=== PATIENT | female | born 2005 | race Caucasian/White ===

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

== ENCOUNTER 2024-01-01 07:03 | Outpatient (OUT) | payer MEDICAID, SELFPAY ==
--- OUTSIDE RECORDS SUMMARY | 2024-01-01 07:06 | XMS_ITS | CCD ---
Author Organization [facility] Inform ion Partnership [facility] Care Team Providers Care Microfilm Operator Name Role Phone ANTONIO MARCELO (LICENSE EXAMINER) Unavailable Unava ilable ANTONIO MARCELO (LICENSE EXAMINER) Unavailable Unava ilable DO Daryl Shannon Primary Care Provider VALERY Mandujano Emergency Provider [phone] Daryl Shannon Primary Care Unavailable Steve Mandujano Attending Unavailable Steve Mandujano Admitting Unavailable DOMO SANDHU Attending Unavailable MARIAM HUANG Attending Unavailable DOMO SANDHU Attending Unavailable DOMO SANDHU Attending Unavailable MARIAM HUANG Attending Unavailable MARIAM HUANG Attending Unavailable DOMO SANDHU Attending Unavailable MARIAM HUANG Attending Unavailable DOMO SANDHU Attending Unavailable DOMO SANDHU Attending Unavailable Medications [...] 20, 2020 12:00am August 15, 2022 6:11pm [id number] 0.3 ml EPINEPHrine 1 mg/ml auto-injector (1 [...] by Deanne Hazel on 08/18/2022 1539 Normal [facility] Specialist Alanine aminotransferase [En zymatic activity/volume] in Serum or PlasmaOrdered By: Steve Mandujano on 08-15-2022 ALT [Catalytic activity/Vol] 16 U/L 7-52 [facility] Albumin [Mass/volume] in Ser um or Plasma by Bromocresol green (BCG) dye binding methoOrdered By: Setve Mandujano on 08-15-2022 Albumin BCG dye [Mass/Vol] 4.5 g/dL 3.5-5.7 [facility] Alkaline phosphatase [Enzyma tic activity/volume] in Serum or PlasmaOrdered By: Steve aMndujano on 08-15-2022 ALP [Catalytic activity/Vol] 82 U/L 34-104 [facility] Aspartate aminotransferase [ Enzymatic activity/volume] in Serum or PlasmaOrdered By: Steve Mandujano on 08-15-2022 AST [Catalytic activity/Vol] 19 U/L 13-39 [facility] Basophils Auto (Bld) [#/Vol] Ordered By: Steve Mandujano on 08-15-2022 Basophils (Bld) [#/Vol] 0.0 10*3/uL 0.0-0.1 [facility] Basophils/100 WBC Auto (Bld) Ordered By: Steve Mandujano on 08-15-2022 Basophils/100 WBC (Bld) 0.4 % . [facility] Bilirubin.total [Mass/volume ] in Serum or PlasmaOrdered By: Steve Mandujano on 08-15-2022 Bilirubin [Mass/Vol] 0.7 mg/dL 0.3-1.0 [facility] Calcium [Mass/volume] in Ser um or PlasmaOrdered By: Steve Mandujano on 08-15-2022 Calcium [Mass/Vol] 8.8 mg/dL 8.6-10.3 [facility] Carbon dioxide, total [Moles /volume] in Serum or PlasmaOrdered By: Steve Mandujano on 08-15-2022 CO2 [Moles/Vol] 22.0 mmol/L 21.0-31.0 [facility] Chloride [Moles/volume] in S jennie or PlasmaOrdered By: Steve Mandujano on 08-15-2022 Chloride [Moles/Vol] 101 mmol/L 98-107 [facility] Complete Blood Count Auto Di ffon 08-15-2022 Basophils (Bld) [#/Vol] 0.0 10*3/uL Normal 0.0-0.1 [facility] Comment on above: Result Comment: PERF ORMED BY: [place] [address] PATHOLOGIST CASHIER SELF SERVICE GASOLINE PHILIP GONZALEZ M.D. Performed By: #### L IPASE, CMP, CBC #### [facility] [address] [place] [address] Basophils/100 WBC (Bld) 0.4 % Normal . [facility] Comment on above: Performed By: #### L IPASE, CMP, CBC #### [facility] [address] [place] [address] [place] Eosinophils (Bld) [#/Vol] 0.0 10*3/uL Normal 0.0-0.7 [facility] Comment on above: Performed By: #### L IPASE, CMP, CBC #### [facility] [address] Eosinophils/100 WBC (Bld) 0.6 % Normal . [facility] Comment on above: Performed By: #### L IPASE, CMP, CBC #### [address] Erythrocyte distribution width (RBC) [Ratio] 13.2 % Normal 11.9-15.3 [facility] Comment on above: Performed By: #### L IPASE, CMP, CBC #### [address] Hematocrit (Bld) [Volume fraction] 37.2 % Normal 36.0-46.0 [facility] Comment on above: Performed By: #### L IPASE, CMP, CBC #### [address] Hemoglobin (Bld) [Mass/Vol] 12.5 g/dL Normal 12.0-16.0 [facility] Comment on above: Performed By: #### L IPASE, CMP, CBC #### [address] Lymphocytes (Bld) [#/Vol] 0.8 10*3/uL Low 1.20-4.8 [facility] Comment on above: Performed By: #### L IPASE, CMP, CBC #### [address] Lymphocytes/100 WBC (Bld) 9.9 % Normal . [facility] Comment on above: Performed By: #### L IPASE, CMP, CBC #### [address] MCH (RBC) [Entitic mass] 28.6 pg Normal 25.0-35.0 [facility] Comment on above: Performed By: #### L IPASE, CMP, CBC #### [address] MCV (RBC) [Entitic vol] 85.4 fL Normal 78-102 [facility] Comment on above: Performed By: #### L IPASE, CMP, CBC #### [facility] [address] Mean Corpuscular HGB Conc 33.5 g/dL Normal 31.0-37.0 [facility] Comment on above: Performed By: #### L IPASE, CMP, CBC #### [facility] [address] [place] [address] [place] Monocytes (Bld) [#/Vol] 0.8 10*3/uL Normal 0.1-1.00 [facility] Comment on above: Performed By: #### L IPASE, CMP, CBC #### [facility] [address] [place] [address] [place] Monocytes/100 WBC (Bld) 17.61 % Normal 0.00-20.00 [facility] Comment on above: Performed By: #### L IPASE, CMP, CBC #### [facility] [address] [place] [address] [place] Monocytes/100 WBC (Bld) 9.9 % Normal . [facility] Comment on above: Performed By: #### L IPASE, CMP, CBC #### [facility] [address] [place] [address] [place] Neutrophils (Bld) [#/Vol] 6.6 10*3/uL Normal 1.2-7.7 [facility] Comment on above: Performed By: #### L IPASE, CMP, CBC #### [facility] [address] [place] [id number] [place] Neutrophils/100 WBC (Bld) 79.2 % Normal . [facility] Comment on above: Performed By: #### L IPASE, CMP, CBC #### [facility] [address] [place] [id number] [place] NRBC% 0.1 /100{WBC} Normal 0-0.5 [facility] Comment on above: Performed By: #### L IPASE, CMP, CBC #### [facility] [address] [place] [address] [place] Platelet mean volume (Bld) [Entitic vol] 7.9 fL Normal 6.3-10.7 [facility] Comment on above: Performed By: #### L IPASE, CMP, CBC #### [address] Platelets (Bld) [#/Vol] 210 10*3/uL Normal 150-450 [facility] Comment on above: Performed By: #### L IPASE, CMP, CBC #### [address] RBC (Bld) [#/Vol] 4.36 10*6/uL Normal 4.10-5.10 [facility] Comment on above: Performed By: #### L IPASE, CMP, CBC #### [address] WBC (Bld) [#/Vol] 8.4 10*3/uL Normal 4.5-13.5 [facility] Comment on above: Performed By: #### L IPASE, CMP, CBC #### [address] Comprehensive Metabolic Pane gisell 08-15-2022 Albumin [Mass/Vol] 4.5 g/dL Normal 3.5-5.7 [facility] Comment on above: Performed By: #### L IPASE, CMP, CBC #### [address] Albumin/Globulin [Mass ratio] 1.6 {ratio} Normal [facility] Comment on above: Performed By: #### L IPASE, CMP, CBC #### [address] ALP [Catalytic activity/Vol] 82 U/L Normal 34-104 [facility] Comment on above: Performed By: #### L IPASE, CMP, CBC #### [address] ALT [Catalytic activity/Vol] 16 U/L Normal 7-52 [facility] Comment on above: Performed By: #### L IPASE, CMP, CBC #### [address] Anion gap [Moles/Vol] 13.8 mmol/L Normal 6.0-15.0 [facility] Comment on above: Performed By: #### L IPASE, CMP, CBC #### [address] AST [Catalytic activity/Vol] 19 U/L Normal 13-39 [facility] Comment on above: Performed By: #### L IPASE, CMP, CBC #### [facility] [address] Bilirubin [Mass/Vol] 0.7 mg/dL Normal 0.3-1.0 [facility] Comment on above: Performed By: #### L IPASE, CMP, CBC #### [address] Calcium [Mass/Vol] 8.8 mg/dL Normal 8.6-10.3 [facility] Comment on above: Performed By: #### L IPASE, CMP, CBC #### [address] Chloride [Moles/Vol] 101 mmol/L Normal 98-107 [facility] Comment on above: Performed By: #### L IPASE, CMP, CBC #### [address] CO2 [Moles/Vol] 22.0 mmol/L Normal 21.0-31.0 [facility] Comment on above: Performed By: #### L IPASE, CMP, CBC #### [address] Creatinine [Mass/Vol] 0.81 mg/dL Normal 0.60-1.20 [facility] Comment on above: Performed By: #### L IPASE, CMP, CBC #### [address] Creatinine Clr Calc Pharmacy 120.43 Normal [facility] Comment on above: Performed By: #### L IPASE, CMP, CBC #### [place] [address] [place] GFR/1.73 sq M.predicted MDRD (S/P/Bld) [Vol rate/Area] mL/min/{1.73_m2} Normal [facility] Comment on above: Performed By: #### L IPARAHEEL WINTER, CBC #### [facility] [address] Globulin (S) [Mass/Vol] 2.8 g/dL Normal [facility] Comment on above: Performed By: #### L IPASE CMP, CBC #### [address] Glucose [Mass/Vol] 93 mg/dL Normal 70-100 [facility] Comment on above: Result Comment: [facility] Glucose Reference Range is dependent on time and content of last meal. Glucose of more than 200 mg/dL in a nonstressed, ambulatory subject supports the diagnosis of Diabetes Mellitus. ADA recommended reference range Performed By: #### L IPARAHEEL WINTER, CBC #### [address] Potassium [Moles/Vol] 3.8 mmol/L Normal 3.5-5.1 [facility] Comment on above: Performed By: #### L IPARAHEEL WINTER, CBC #### [address] Protein [Mass/Vol] 7.3 g/dL Normal 6.4-8.9 [facility] Comment on above: Performed By: #### L IPASE CMP, CBC #### [address] Sodium [Moles/Vol] 133 mmol/L Low 136-145 [facility] Comment on above: Performed By: #### L IPASE CMP, CBC #### [place] [address] [place] Urea nitrogen [Mass/Vol] 16 mg/dL Normal 7-25 [facility] Comment on above: Performed By: #### L IPASE, CMP, CBC #### [place] [address] [place] Creatinine [Mass/volume] in Serum or PlasmaOrdered By: Steve Mandujano on 08-15-2022 Creatinine [Mass/Vol] 0.81 mg/dL 0.60-1.20 [facility] Eosinophils Auto (Bld) [#/Vo l]Ordered By: Steve Mandujano on 08-15-2022 Eosinophils (Bld) [#/Vol] 0.0 10*3/uL 0.0-0.7 [facility] Eosinophils/100 WBC Auto (Bl d)Ordered By: Steve Mandujano on 08-15-2022 Eosinophils/100 WBC (Bld) 0.6 % . [facility] Erythrocyte distribution wid th Auto (RBC) [Ratio]Ordered By: Steve Mandujano on 08-15-2022 Erythrocyte distribution width (RBC) [Ratio] 13.2 % 11.9-15.3 [facility] Globulin Calc (S) [Mass/Vol] Ordered By: Steve Mandujano on 08-15-2022 Globulin (S) [Mass/Vol] 2.8 g/dL [facility] Glucose [Mass/volume] in Ser um or PlasmaOrdered By: Steve Mandujano on 08-15-2022 Glucose [Mass/Vol] 93 mg/dL 70-100 [facility] Comment on above: ADA recommended refe rence rangeRandom Glucose Reference Range is dependent on time and content of last meal. Glucose of more than 200 mg/dL in a nonstressed, ambulatory subject supports the diagnosis of Diabetes Mellitus. Hematocrit Auto (Bld) [Volum e fraction]Ordered By: Steve Mandujano on 08-15-2022 Hematocrit (Bld) [Volume fraction] 37.2 % 36.0-46.0 [facility] Hemoglobin [Mass/volume] in BloodOrdered By: Steve Mandujano on 08-15-2022 Hemoglobin (Bld) [Mass/Vol] 12.5 g/dL 12.0-16.0 [facility] Leukocytes [#/volume] correc lilly for nucleated erythrocytes in Blood by Automated counOrdered By: Steve Mandujano on 08-15-2022 WBC corrected for nucl RBC Auto (Bld) [#/Vol] 8.4 10*3/uL 4.5-13.5 [facility] Lipaseon 08-15-2022 Lipase [Catalytic activity/Vol] 11.0 U/L Normal 11.0-82.0 [facility] Comment on above: Result Comment: PERF ORMED BY: [place] [address] PATHOLOGIST CASHIER SELF SERVICE GASOLINE PHILIP GONZALEZ M.D. Performed By: #### L IPASE, CMP, CBC #### [address] Lipase [Enzymatic activity/v olume] in Serum or PlasmaOrdered By: Steve Mandujano on 08-15-2022 Lipase [Catalytic activity/Vol] 11.0 U/L 11.0-82.0 [facility] Lymphocytes Auto (Bld) [#/Vo l]Ordered By: Steve Mandujano on 08-15-2022 Lymphocytes (Bld) [#/Vol] 0.8 10*3/uL 1.20-4.8 [facility] Lymphocytes/100 WBC Auto (Bl d)Ordered By: Steve Mandujano on 08-15-2022 Lymphocytes/100 WBC (Bld) 9.9 % . [facility] MCH Auto (RBC) [Entitic mass ]Ordered By: Steve Mandujano on 08-15-2022 MCH (RBC) [Entitic mass] 28.6 pg 25.0-35.0 [facility] MCHC Auto (RBC) [Mass/Vol]Or dered By: Steve Mandujano on 08-15-2022 MCHC (RBC) [Mass/Vol] 33.5 g/dL 31.0-37.0 [facility] MCV Auto (RBC) [Entitic vol] Ordered By: Steve Mandujano on 08-15-2022 MCV (RBC) [Entitic vol] 85.4 fL 78-102 [facility] Monocyte distribution width [Entitic volume] in Blood by AutomatedOrdered By: Steve Mandujano on 08-15-2022 Monocyte distribution width Auto (Bld) [Entitic vol] 17.61 % 0.00-20.00 [facility] Monocytes Auto (Bld) [#/Vol] Ordered By: Steve Mandujano on 08-15-2022 Monocytes (Bld) [#/Vol] 0.8 10*3/uL 0.1-1.00 [facility] Monocytes/100 WBC Auto (Bld) Ordered By: Steve Mandujano on 08-15-2022 Monocytes/100 WBC (Bld) 9.9 % . [facility] Neutrophils Auto (Bld) [#/Vo l]Ordered By: Steve Mandujano on 08-15-2022 Neutrophils (Bld) [#/Vol] 6.6 10*3/uL 1.2-7.7 [facility] Neutrophils/100 WBC Auto (Bl d)Ordered By: Steve Mandujano on 08-15-2022 Neutrophils/100 WBC (Bld) 79.2 % . [facility] No Panel InformationOrdered By: Steve Mandujano on 08-15-2022 Estimated GFR (CKD-EPI) > 60.0 mL/Min [facility] Creatinine Clearance (Chem 120.43 [facility] Nucleated erythrocytes [Pres ence] in Blood by Automated countOrdered By: Steve Mandujano on 08-15-2022 Nucleated RBC Auto Ql (Bld) 0.1 /100{WBC} 0-0.5 [facility] Platelet mean volume Auto (B ld) [Entitic vol]Ordered By: Steve Mandujano on 08-15-2022 Platelet mean volume (Bld) [Entitic vol] 7.9 fL 6.3-10.7 [facility] Platelets Auto (Bld) [#/Vol] Ordered By: Steve Mandujano on 08-15-2022 Platelets (Bld) [#/Vol] 210 10*3/uL 150-450 [facility] Potassium [Moles/volume] in Serum or PlasmaOrdered By: Steve Mandujano on 08-15-2022 Potassium [Moles/Vol] 3.8 mmol/L 3.5-5.1 [facility] Protein [Mass/volume] in Ser um or PlasmaOrdered By: Steve Mandujano on 08-15-2022 Protein [Mass/Vol] 7.3 g/dL 6.4-8.9 [facility] RBC Auto (Bld) [#/Vol]Ordere d By: Steve Mandujano on 08-15-2022 RBC (Bld) [#/Vol] 4.36 10*6/uL 4.10-5.10 [facility] Serum or plasma albumin/glob ulin mass ratioOrdered By: Steve Mandujano on 08-15-2022 Albumin/Globulin [Mass ratio] 1.6 {ratio} [facility] Serum or plasma anion gap de terminationOrdered By: Steve Mandujano on 08-15-2022 Anion gap [Moles/Vol] 13.8 mmol/L 6.0-15.0 [facility] Sodium [Moles/volume] in Ser um or PlasmaOrdered By: Steve Mandujano on 08-15-2022 Sodium [Moles/Vol] 133 mmol/L 136-145 [facility] Urea nitrogen [Mass/volume] in Serum or PlasmaOrdered By: Steve Mandujano on 08-15-2022 Urea nitrogen [Mass/Vol] 16 mg/dL 7-25 [facility] WBC Auto (Bld) [#/Vol]Ordere d By: Steve Mandujano on 08-15-2022 WBC (Bld) [#/Vol] 8.4 10*3/uL 4.5-13.5 [facility] CNCOon 01-06-2021 CNCO Letter Text Normal [facility] CNOVon 01-04-2021 CNOV Office Visit (PERHAV ) CAROL KRAUSE ([id number]) 3 F Date Time Provider Department 01/04/21 9:00 AM SHARRON ARREOLA During your visit today, we recorded the following information about you: Temperature Pulse Respiration Blood pressure 98.3 degrees 92/minute 18/minute 127/64 Weight Height 79.8 kg 1.6 m Sharron Arreola MD 01/07/2021 3:20 PM Signed INITIAL OUTPATIENT VISIT PEDIATRIC RHEUMATOLOGY SERVICE DATE: 01/04/2021 REFERRING PHYSICIAN: Daryl Shannon, DO [address] [place] [address] PRIMARY CARE PHYSICIAN: Daryl Shannon DO ACCOMPANIED [...] - S (more content not included)... Normal [facility] PROGRESSon 10-17-2017 Protein HNO ID: [id number]: Reba Caballero ([facility]) GolayService: RadiologyAuthor Type: Cardiac SonographerType: Progress NotesFiled: 10/17/2017 10:42 AMNote Text: Radiology Service Progress NotePATIENT NAME: Carol KrauseMRN: [id number] OF SERVICE: October 17, 2017TIME: 10:40 AMPATIENT IDENTITY VERIFICATION COMPLETED USING TWO (2) METHODS: Patientconfirmed name verbally and ID band matches..PATIENT GENDER DATA: Female. status: : NoBreastfeeding status: NO. and N/APATIENT RELEVANT IMPLANT DATA REVIEWED: Not ApplicableRADIOLOGY DEPARTMENT: Ultrasound renalPERIPHERAL IV DATA: Not applicableSIGNED BY: Jacki Bailey 2017 10:40 AM [facility] Protein HNO ID: [id number]: Sandra (Rt) WallService: RadiologyAuthor Type: TechnicianType: Progress NotesFiled: 10/17/2017 10:03 AMNote Text: Radiology Service Progress NotePATIENT NAME: Carol KrauseMRN: [id number] OF SERVICE: October 17, 2017TIME: 10:03 AMPATIENT IDENTITY VERIFICATION COMPLETED USING TWO (2) METHODS: Patientconfirmed name verbally and Date of .PATIENT GENDER DATA: Female. status: : NoBreastfeeding status: NO.PATIENT RELEVANT IMPLANT DATA REVIEWED: YesRADIOLOGY DEPARTMENT: General X-ray: Exam(s) Completed: Abdomen X-RayAbdomenPERIPHERAL IV DATA: Not applicableSIGNED BY: Nikki Haley 2017 10:03 AM [facility] US KIDNEY/BLADDERon 10-18-19 US KIDNEY/BLADDER * * *Final Report* * *DATE OF EXAM: Oct 17 2017 10:35AM [facility] 1055 - US KIDNEY/BLADDER / [...] GUERIN MD on Oct 17 2017 11:06AM [id number] [facility] XR ABDOMEN 1V SUPINEon 10-17 XR [...] Large amount of fecal material in the colon.Store Loss Prevention Manager : JOSE Transcribe Date/Time: Oct 17 2017 10:32ADictated by : Go GUZMAN examination was interpreted and the report reviewed and electronically signed by: SASHA MANDUJANO MD on Oct 17 2017 10:33AM [id number] [facility] Vital Signs Date Time Vital Sign Value Performing Clinician Faci lituzair 08-15-2022 19:52-0400 Diastolic blood pressure 60 mm[Hg] DO Daryl Shannon Work Phone: [facility] 08-15-2022 19:52-0400 Heart rate 78 /min DO Daryl Shannon Work Phone: [phone] [place] [address] 08-15-2022 19:52-0400 Respiratory rate 18 /min DO Daryl Petznick Work Phone: [phone] [place] [address] 08-15-2022 19:52-0400 SaO2% (BldA) [Mass fraction] 98 % DO Daryl Petznick Work Phone: [phone])944-967469 [place] [address] 08-15-2022 19:52-0400 Systolic blood pressure 119 mm[Hg] DO Daryl Petznick Work Phone: 4([phone])502-509969 [place] [address] 08-15-2022 18:47-0400 Body temperature 97.6 [degF] DO Daryl Petznick Work Phone: [phone] [place] [address] 08-15-2022 17:41-0400 Body height 160.02 cm DO Daryl Petznick Work Phone: [phone] [place] [address] 08-15-2022 17:41-0400 Body weight 90.71 kg DO Daryl Petznick Work Phone: [phone] [place] [address] Encounters Encounter Date Encounter Type Care Provider Facility Start: 12-27-2023 End: 12-27-2023 ambulatory DOMO PHOEBE Not Available Start: 12-20-2023 End: 12-20-2023 ambulatory DOMO PHOEBE [...] Available Start: 06-09-2023 End: 06-09-2023 ambulatory DOMO SANDHU Not Available Start: 08-15-2022 End: 08-15-2022 Emergency department patient visit Daryl Shannon Facility:[facility] Start: 08-15-2022 End: 08-15-2022 Emergency department patient visit DO Daryl Shannon Work Phone: [facility] Work Phone: Start: 10-17-2017 Ambulatory ANTONIO Caballero (CN P) [facility] Plan of Treatment Date Care Activity Detail Author Patient Education Abdominal Pain, Adult E D [facility] Work Phone: Patient referral [facility] Work Phone: Payers Date Payer Category Payer Self-pay [id number] 2022 Unknown [id number] 2022 Medicaid [id number] 2004 Unknown [id number] 2.16.84 [id number] 2004 Unknown [id number] 2.16.84 [id number] 2004 Unknown [id number] 2.16.84 0.1.889387.3.579.2.1258 2004 Unknown [id number] 2.16.84 0.1.585825.3.579.2.1258 2004 Unknown [id number] 2.16.84 0.1.037808.3.579.2.1258 2004 Unknown [id number] 2.16.84 0.1.930630.3.579.2.9 2004 Unknown [id number] 2.16.84 0.1.098079.3.579.2.1259 2004 Unknown [id number] 2.16.84 0.1.641065.3.579.2.1259 2004 Unknown [id number] 2.16.84 0.1.979509.3.579.2.1259 2004 Unknown [id number] 2.16.84 0.1.700158.3.579.2.1259 2004 Unknown [id number] 2.16.84 0.1.257754.3.579.2.1259 Medicaid [employer] [id number] Unknown [id number] Unknown [id number] 2.16.8 [id number] Social History Date Type Detail Facility Start: [facility] Start: 2005 Sex Assigned At Female [facility] Progress note 01-04-2021 Note Date & Type Note Facility 01-04-2021 Note HNO ID: [id number] Author: Sharron Arreola MD Service: ? Author Type: Physician Type: Progress Notes Filed: 01/07/2021 3:20 PM Note Text: INITIAL OUTPATIENT VISIT PEDIATRIC RHEUMATOLOGY SERVICE DATE: 01/04/2021 REFERRING PHYSICIAN: Daryl Shannon DO [address] [facility] [address] [place] [id number] PRIMARY CARE PHYSICIAN: Daryl Shannon DO ACCOMPANIED [...] CURRENT MEDICATIONS: EP (more content not included)... [facility] Evaluation note Note Date & Type Note Facility Evaluation note No assessment information availa [facility] Work Phone: Summary Purpose [...] section and content) DATE CREATED AUTHOR 10/17/2017 [facility] DATE CREATED AUTHOR AUTHOR'S ORGANIZ ATION 05/08/2021 [facility] DATE CREATED AUTHOR AUTHOR'S ORGANIZ ATION 08/16/2022 [facility] DATE CREATED AUTHOR AUTHOR'S ORGANIZ ATION 08/19/2022 [facility] DATE CREATED AUTHOR AUTHOR'S ORGANIZ ATION 12/29/2023 [facility] EPIC Care Teams (unrecognized sec tion and content) Team Status: Active Member Role Status Dates Daryl Shannon , Primary Care Provider Active Team Status: Inactive [...] BE BASED ON THE PRIMARY CLINICAL RECORDS. [employer] provides no warranty or guarantee of the accuracy or completeness of information in this document.
[2024-01-01 10:21] VITALS: BP 124/58; PULSE 100
== END 2024-01-01 11:07 | disposition home or self-care (01) ==
LOC: FBCO 07:03 → FBC 10:10
PROVIDERS: PCP Family Medicine; Visit Provider Obstetrics & Gynecology
DX: O24.419 Gestational diabetes mellitus in pregnancy, unspecified control (principal); Z3A.37 37 weeks gestation of pregnancy
CPT/HCPCS: 59025

== ENCOUNTER 2024-01-04 06:56 | Outpatient (OUT) | payer MEDICAID, SELFPAY ==
--- OUTSIDE RECORDS SUMMARY | 2024-01-04 06:59 | XMS_ITS | CCD ---
Author Organization [facility] Inform ion Partnership [facility] Care Team Providers Care Traffic Sergeant Name Role Phone ANTONIO AMRCELO (MANDARIN CHINESE TEACHER) Unavailable Unava ilable ANTONIO MARCELO (MANDARIN CHINESE TEACHER) Unavailable Unava ilable DO Daryl Shannon Primary [...] 20, 2020 12:00am August 15, 2022 6:11pm [id number] 0.3 ml EPINEPHrine 1 mg/ml auto-injector (1 [...] by Deanne Hazel on 08/18/2022 1539 Normal [facility] Specialist Alanine aminotransferase [En zymatic activity/volume] in Serum or PlasmaOrdered By: Steve Mandujano on 08-15-2022 ALT [Catalytic activity/Vol] 16 U/L 7-52 [facility] Albumin [Mass/volume] in Ser um or Plasma by Bromocresol green (BCG) dye binding methoOrdered By: Steve Mandujano on 08-15-2022 Albumin BCG dye [Mass/Vol] 4.5 g/dL 3.5-5.7 [facility] Alkaline phosphatase [Enzyma tic activity/volume] in Serum or PlasmaOrdered By: Steve Mandujano on 08-15-2022 ALP [Catalytic activity/Vol] 82 U/L 34-104 [facility] Aspartate aminotransferase [ Enzymatic activity/volume] in Serum or PlasmaOrdered By: Steve Mandujano on 08-15-2022 AST [Catalytic activity/Vol] 19 U/L 13-39 [facility] Basophils Auto (Bld) [#/Vol] Ordered By: Steve Mandujano on 08-15-2022 Basophils (Bld) [#/Vol] 0.0 10*3/uL 0.0-0.1 [facility] Basophils/100 WBC Auto (Bld) Ordered By: Steve Mandujano on 08-15-2022 Basophils/100 WBC (Bld) 0.4 % . [facility] Bilirubin.total [Mass/volume ] in Serum or PlasmaOrdered By: Steve Mandujano on 08-15-2022 Bilirubin [Mass/Vol] 0.7 mg/dL 0.3-1.0 [facility] Calcium [Mass/volume] in Ser um or PlasmaOrdered By: Steve Mandujano on 08-15-2022 Calcium [Mass/Vol] 8.8 mg/dL 8.6-10.3 [facility] Carbon dioxide, total [Moles /volume] in Serum or PlasmaOrdered By: Steve Mandujano on 08-15-2022 CO2 [Moles/Vol] 22.0 mmol/L 21.0-31.0 [facility] Chloride [Moles/volume] in S jennie or PlasmaOrdered By: Steve Mandujano on 08-15-2022 Chloride [Moles/Vol] 101 mmol/L 98-107 [facility] Complete Blood Count Auto Di ffon 08-15-2022 Basophils (Bld) [#/Vol] 0.0 10*3/uL Normal 0.0-0.1 [facility] Comment on above: Result Comment: PERF ORMED BY: [place] [address] PATHOLOGIST PRESS OPERATOR ASSISTANT PHILIP GONZALEZ M.D. Performed By: #### L IPASE, CMP, CBC #### [facility] [address] [place] [address] Basophils/100 WBC (Bld) 0.4 % Normal . [facility] Comment on above: Performed By: #### L IPASE, CMP, CBC #### [facility] [address] [place] [address] [place] Eosinophils (Bld) [#/Vol] 0.0 10*3/uL Normal 0.0-0.7 [facility] Comment on above: Performed By: #### L IPASE, CMP, CBC #### [facility] [address] Eosinophils/100 WBC (Bld) 0.6 % Normal . [facility] Comment on above: Performed By: #### L IPASE, CMP, CBC #### [address] Erythrocyte distribution width (RBC) [Ratio] 13.2 % Normal 11.9-15.3 [facility] Comment on above: Performed By: #### L IPASE, CMP, CBC #### [address] Hematocrit (Bld) [Volume fraction] 37.2 % Normal 36.0-46.0 [facility] Comment on above: Performed By: #### L IPASE, CMP, CBC #### [address] Hemoglobin (Bld) [Mass/Vol] 12.5 g/dL Normal 12.0-16.0 [facility] Comment on above: Performed By: #### L IPASE, CMP, CBC #### [address] Lymphocytes (Bld) [#/Vol] 0.8 10*3/uL Low 1.20-4.8 [facility] Comment on above: Performed By: #### L IPASE, CMP, CBC #### [address] Lymphocytes/100 WBC (Bld) 9.9 % Normal . [facility] Comment on above: Performed By: #### L IPASE, CMP, CBC #### [address] MCH (RBC) [Entitic mass] 28.6 pg Normal 25.0-35.0 [facility] Comment on above: Performed By: #### L IPASE, CMP, CBC #### [address] MCV (RBC) [Entitic vol] 85.4 fL Normal 78-102 [facility] Comment on above: Performed By: #### L IPASE, CMP, CBC #### [facility] [address] Mean Corpuscular HGB Conc 33.5 g/dL Normal 31.0-37.0 [facility] Comment on above: Performed By: #### L IPASE, CMP, CBC #### [facility] [address] [place] [address] [place] Monocytes (Bld) [#/Vol] 0.8 10*3/uL Normal 0.1-1.00 [facility] Comment on above: Performed By: #### L IPASE, CMP, CBC #### [facility] [address] [place] [address] [place] Monocytes/100 WBC (Bld) 17.61 % Normal 0.00-20.00 [facility] Comment on above: Performed By: #### L IPASE, CMP, CBC #### [facility] [address] [place] [address] [place] Monocytes/100 WBC (Bld) 9.9 % Normal . [facility] Comment on above: Performed By: #### L IPASE, CMP, CBC #### [facility] [address] [place] [address] [place] Neutrophils (Bld) [#/Vol] 6.6 10*3/uL Normal 1.2-7.7 [facility] Comment on above: Performed By: #### L IPASE, CMP, CBC #### [facility] [address] [place] [id number] [place] Neutrophils/100 WBC (Bld) 79.2 % Normal . [facility] Comment on above: Performed By: #### L IPASE, CMP, CBC #### [facility] [address] [place] [id number] [place] NRBC% 0.1 /100{WBC} Normal 0-0.5 [facility] Comment on above: Performed By: #### L IPASE, CMP, CBC #### [facility] [address] [place] [address] [place] Platelet mean volume (Bld) [Entitic vol] 7.9 fL Normal 6.3-10.7 [facility] Comment on above: Performed By: #### L IPASE, CMP, CBC #### [address] Platelets (Bld) [#/Vol] 210 10*3/uL Normal 150-450 [facility] Comment on above: Performed By: #### L IPASE, CMP, CBC #### [address] RBC (Bld) [#/Vol] 4.36 10*6/uL Normal 4.10-5.10 [facility] Comment on above: Performed By: #### L IPASE, CMP, CBC #### [address] WBC (Bld) [#/Vol] 8.4 10*3/uL Normal 4.5-13.5 [facility] Comment on above: Performed By: #### L IPASE, CMP, CBC #### [address] Comprehensive Metabolic Pane gisell 08-15-2022 Albumin [Mass/Vol] 4.5 g/dL Normal 3.5-5.7 [facility] Comment on above: Performed By: #### L IPASE, CMP, CBC #### [address] Albumin/Globulin [Mass ratio] 1.6 {ratio} Normal [facility] Comment on above: Performed By: #### L IPASE, CMP, CBC #### [address] ALP [Catalytic activity/Vol] 82 U/L Normal 34-104 [facility] Comment on above: Performed By: #### L IPASE, CMP, CBC #### [address] ALT [Catalytic activity/Vol] 16 U/L Normal 7-52 [facility] Comment on above: Performed By: #### L IPASE, CMP, CBC #### [address] Anion gap [Moles/Vol] 13.8 mmol/L Normal 6.0-15.0 [facility] Comment on above: Performed By: #### L IPASE, CMP, CBC #### [address] AST [Catalytic activity/Vol] 19 U/L Normal 13-39 [facility] Comment on above: Performed By: #### L IPASE, CMP, CBC #### [facility] [address] Bilirubin [Mass/Vol] 0.7 mg/dL Normal 0.3-1.0 [facility] Comment on above: Performed By: #### L IPASE, CMP, CBC #### [address] Calcium [Mass/Vol] 8.8 mg/dL Normal 8.6-10.3 [facility] Comment on above: Performed By: #### L IPASE, CMP, CBC #### [address] Chloride [Moles/Vol] 101 mmol/L Normal 98-107 [facility] Comment on above: Performed By: #### L IPASE, CMP, CBC #### [address] CO2 [Moles/Vol] 22.0 mmol/L Normal 21.0-31.0 [facility] Comment on above: Performed By: #### L IPASE, CMP, CBC #### [address] Creatinine [Mass/Vol] 0.81 mg/dL Normal 0.60-1.20 [facility] Comment on above: Performed By: #### L IPASE, CMP, CBC #### [address] Creatinine Clr Calc Pharmacy 120.43 Normal [facility] Comment on above: Performed By: #### L IPASE, CMP, CBC #### [place] [address] [place] GFR/1.73 sq M.predicted MDRD (S/P/Bld) [Vol rate/Area] mL/min/{1.73_m2} Normal [facility] Comment on above: Performed By: #### L IPARAHEEL WINTER, CBC #### [facility] [address] Globulin (S) [Mass/Vol] 2.8 g/dL Normal [facility] Comment on above: Performed By: #### L IPASE CMP, CBC #### [address] Glucose [Mass/Vol] 93 mg/dL Normal 70-100 [facility] Comment on above: Result Comment: [facility] Glucose Reference Range is dependent on time and content of last meal. Glucose of more than 200 mg/dL in a nonstressed, ambulatory subject supports the diagnosis of Diabetes Mellitus. ADA recommended reference range Performed By: #### L IPARAHEEL WINTER, CBC #### [address] Potassium [Moles/Vol] 3.8 mmol/L Normal 3.5-5.1 [facility] Comment on above: Performed By: #### L IPARAHEEL WINTER, CBC #### [address] Protein [Mass/Vol] 7.3 g/dL Normal 6.4-8.9 [facility] Comment on above: Performed By: #### L IPASE CMP, CBC #### [address] Sodium [Moles/Vol] 133 mmol/L Low 136-145 [facility] Comment on above: Performed By: #### L IPASE CMP, CBC #### [place] [address] [place] Urea nitrogen [Mass/Vol] 16 mg/dL Normal 7-25 [facility] Comment on above: Performed By: #### L IPASE, CMP, CBC #### [place] [address] [place] Creatinine [Mass/volume] in Serum or PlasmaOrdered By: Steve Mandujano on 08-15-2022 Creatinine [Mass/Vol] 0.81 mg/dL 0.60-1.20 [facility] Eosinophils Auto (Bld) [#/Vo l]Ordered By: Steve Mandujano on 08-15-2022 Eosinophils (Bld) [#/Vol] 0.0 10*3/uL 0.0-0.7 [facility] Eosinophils/100 WBC Auto (Bl d)Ordered By: Steve Mandujano on 08-15-2022 Eosinophils/100 WBC (Bld) 0.6 % . [facility] Erythrocyte distribution wid th Auto (RBC) [Ratio]Ordered By: Steve Mandujano on 08-15-2022 Erythrocyte distribution width (RBC) [Ratio] 13.2 % 11.9-15.3 [facility] Globulin Calc (S) [Mass/Vol] Ordered By: Steve Mandujano on 08-15-2022 Globulin (S) [Mass/Vol] 2.8 g/dL [facility] Glucose [Mass/volume] in Ser um or [...] Hematocrit (Bld) [Volume fraction] 37.2 % 36.0-46.0 [facility] Hemoglobin [Mass/volume] in BloodOrdered By: Steve Mandujano on 08-15-2022 Hemoglobin (Bld) [Mass/Vol] 12.5 g/dL 12.0-16.0 [facility] Leukocytes [#/volume] correc lilly for nucleated erythrocytes in Blood by Automated counOrdered By: Steve Mandujano on 08-15-2022 WBC corrected for nucl RBC Auto (Bld) [#/Vol] 8.4 10*3/uL 4.5-13.5 [facility] Lipaseon 08-15-2022 Lipase [Catalytic activity/Vol] 11.0 U/L Normal 11.0-82.0 [facility] Comment on above: Result Comment: PERF ORMED BY: [place] [address] PATHOLOGIST PRESS OPERATOR ASSISTANT PHILIP GONZALEZ M.D. Performed By: #### L IPASE, CMP, CBC #### [address] Lipase [Enzymatic activity/v olume] in Serum or PlasmaOrdered By: Steve Mandujano on 08-15-2022 Lipase [Catalytic activity/Vol] 11.0 U/L 11.0-82.0 [facility] Lymphocytes Auto (Bld) [#/Vo l]Ordered By: Steve Mandujano on 08-15-2022 Lymphocytes (Bld) [#/Vol] 0.8 10*3/uL 1.20-4.8 [facility] Lymphocytes/100 WBC Auto (Bl d)Ordered By: Steve Mandujano on 08-15-2022 Lymphocytes/100 WBC (Bld) 9.9 % . [facility] MCH Auto (RBC) [Entitic mass ]Ordered By: Steve Mandujano on 08-15-2022 MCH (RBC) [Entitic mass] 28.6 pg 25.0-35.0 [facility] MCHC Auto (RBC) [Mass/Vol]Or dered By: Steve Mandujano on 08-15-2022 MCHC (RBC) [Mass/Vol] 33.5 g/dL 31.0-37.0 [facility] MCV Auto (RBC) [Entitic vol] Ordered By: Steve Mandujano on 08-15-2022 MCV (RBC) [Entitic vol] 85.4 fL 78-102 [facility] Monocyte distribution width [Entitic volume] in Blood by AutomatedOrdered By: Steve Mandujano on 08-15-2022 Monocyte distribution width Auto (Bld) [Entitic vol] 17.61 % 0.00-20.00 [facility] Monocytes Auto (Bld) [#/Vol] Ordered By: Steve Mandujano on 08-15-2022 Monocytes (Bld) [#/Vol] 0.8 10*3/uL 0.1-1.00 [facility] Monocytes/100 WBC Auto (Bld) Ordered By: Steve Mandujano on 08-15-2022 Monocytes/100 WBC (Bld) 9.9 % . [facility] Neutrophils Auto (Bld) [#/Vo l]Ordered By: Steve Mandujano on 08-15-2022 Neutrophils (Bld) [#/Vol] 6.6 10*3/uL 1.2-7.7 [facility] Neutrophils/100 WBC Auto (Bl d)Ordered By: Steve Mandujano on 08-15-2022 Neutrophils/100 WBC (Bld) 79.2 % . [facility] No Panel InformationOrdered By: Steve Mandujano on 08-15-2022 Estimated GFR (CKD-EPI) > 60.0 mL/Min [facility] Creatinine Clearance (Chem 120.43 [facility] Nucleated erythrocytes [Pres ence] in Blood by Automated countOrdered By: Steve Mandujano on 08-15-2022 Nucleated RBC Auto Ql (Bld) 0.1 /100{WBC} 0-0.5 [facility] Platelet mean volume Auto (B ld) [Entitic vol]Ordered By: Steve Mandujano on 08-15-2022 Platelet mean volume (Bld) [Entitic vol] 7.9 fL 6.3-10.7 [facility] Platelets Auto (Bld) [#/Vol] Ordered By: Steve Mandujano on 08-15-2022 Platelets (Bld) [#/Vol] 210 10*3/uL 150-450 [facility] Potassium [Moles/volume] in Serum or PlasmaOrdered By: Steve Mandujano on 08-15-2022 Potassium [Moles/Vol] 3.8 mmol/L 3.5-5.1 [facility] Protein [Mass/volume] in Ser um or PlasmaOrdered By: Steve Mandujano on 08-15-2022 Protein [Mass/Vol] 7.3 g/dL 6.4-8.9 [facility] RBC Auto (Bld) [#/Vol]Ordere d By: Steve Mandujano on 08-15-2022 RBC (Bld) [#/Vol] 4.36 10*6/uL 4.10-5.10 [facility] Serum or plasma albumin/glob ulin mass ratioOrdered By: Steve Mandujano on 08-15-2022 Albumin/Globulin [Mass ratio] 1.6 {ratio} [facility] Serum or plasma anion gap de terminationOrdered By: Steve Mandujano on 08-15-2022 Anion gap [Moles/Vol] 13.8 mmol/L 6.0-15.0 [facility] Sodium [Moles/volume] in Ser um or PlasmaOrdered By: Steve Mandujano on 08-15-2022 Sodium [Moles/Vol] 133 mmol/L 136-145 [facility] Urea nitrogen [Mass/volume] in Serum or PlasmaOrdered By: Steve Mandujano on 08-15-2022 Urea nitrogen [Mass/Vol] 16 mg/dL 7-25 [facility] WBC Auto (Bld) [#/Vol]Ordere d By: Steve Mandujano on 08-15-2022 WBC (Bld) [#/Vol] 8.4 10*3/uL 4.5-13.5 [facility] CNCOon 01-06-2021 CNCO Letter Text Normal [facility] CNOVon 01-04-2021 CNOV Office Visit (PERHAV ) CAROL KRAUSE ([id number]) 3 F Date Time Provider Department 01/04/21 [...] [address] [place] [address] PRIMARY CARE PHYSICIAN: Daryl Shannon DO ACCOMPANIED [...] [facility]2017 Protein HNO ID: [id number]: Reba Caballero ([facility]) GolayService: RadiologyAuthor Type: Cardiac SonographerType: Progress NotesFiled: 10/17/2017 10:42 AMNote Text: Radiology Service Progress NotePATIENT NAME: Carol KrauseMRN: [id number] OF SERVICE: October 17, 2017TIME: 10:40 AMPATIENT IDENTITY VERIFICATION COMPLETED USING TWO (2) METHODS: Patientconfirmed name verbally and ID band matches..PATIENT GENDER DATA: Female. status: : NoBreastfeeding status: NO. and N/APATIENT RELEVANT IMPLANT DATA REVIEWED: Not ApplicableRADIOLOGY DEPARTMENT: Ultrasound renalPERIPHERAL IV DATA: Not applicableSIGNED BY: Jacki Bailey 2017 10:40 AM [facility] Protein HNO ID: [id number]: Sandra (Rt) WallService: RadiologyAuthor Type: TechnicianType: Progress NotesFiled: 10/17/2017 10:03 AMNote Text: Radiology Service Progress NotePATIENT NAME: Carol KrauseMRN: [id number] OF SERVICE: October 17, 2017TIME: 10:03 AMPATIENT IDENTITY VERIFICATION COMPLETED USING TWO (2) METHODS: Patientconfirmed name verbally and Date of .PATIENT GENDER DATA: Female. status: : NoBreastfeeding status: NO.PATIENT RELEVANT IMPLANT DATA REVIEWED: YesRADIOLOGY DEPARTMENT: General X-ray: Exam(s) Completed: Abdomen X-RayAbdomenPERIPHERAL IV DATA: Not applicableSIGNED BY: Nikki Haley 2017 10:03 AM [facility] US KIDNEY/BLADDERon 10-18-19 US KIDNEY/BLADDER * * *Final Report* * *DATE OF EXAM: Oct 17 2017 10:35AM [facility] 1055 - US KIDNEY/BLADDER [...] GUERIN MD on Oct 17 2017 11:06AM [id number] [facility] XR ABDOMEN 1V SUPINEon 10-17 XR ABDOMEN [...] Large amount of fecal material in the colon.Neurosurgery Physician : JOSE Transcribe Date/Time: Oct 17 2017 10:32ADictated by : Go GUZMAN examination was interpreted and the report reviewed and electronically signed by: SASHA MANDUJANO MD on Oct 17 2017 10:33AM [id number] [facility] Vital Signs Date Time Vital Sign Value Performing Clinician Faci lituzair 08-15-2022 19:52-0400 Diastolic blood pressure 60 mm[Hg] DO Daryl Shannon Work Phone: [facility] 08-15-2022 19:52-0400 Heart rate 78 /min DO Daryl Shannon Work Phone: [phone] [place] [address] 08-15-2022 19:52-0400 Respiratory rate 18 /min DO Daryl Petznick Work Phone: [phone])[phone] [place] [address] 08-15-2022 19:52-0400 SaO2% (BldA) [Mass fraction] 98 % DO Daryl Petznick Work Phone: [phone] [place] [address] 08-15-2022 19:52-0400 Systolic blood pressure 119 mm[Hg] DO Daryl Petznick Work Phone: [phone])688-620937 [place] [address] 08-15-2022 18:47-0400 Body temperature 97.6 [degF] DO Daryl Petznick Work Phone: [phone] [place] [address] 08-15-2022 17:41-0400 Body height 160.02 cm DO Daryl Petznick Work Phone: [phone] [place] [address] 08-15-2022 17:41-0400 Body weight 90.71 kg DO Daryl Petznick Work Phone: [phone] [place] [address] Encounters Encounter Date Encounter Type Care Provider [...] 08-15-2022 Emergency department patient visit Daryl Shannon Facility:[facility] Start: 08-15-2022 End: 08-15-2022 Emergency department patient visit DO Daryl Shannon Work Phone: [facility] Work Phone: Start: 10-17-2017 Ambulatory ANTONIO Caballero (CN P) [facility] Plan of Treatment Date Care Activity Detail Author Patient Education Abdominal Pain, Adult E D [facility] Work Phone: Patient referral [facility] Work Phone: Payers Date Payer Category Payer Self-pay [id number] 2022 Unknown [id number] 2022 Medicaid [id number] 2004 Unknown [id number] 2.16.84 [id number] 2004 Unknown [id number] 2.16.84 0.1.387679.3.579.2.1258 2004 Unknown [id number] 2.16.84 0.1.306166.3.579.2.1258 2004 Unknown [id number] 2.16.84 0.1.021669.3.579.2.1258 2004 Unknown [id number] 2.16.84 0.1.690650.3.579.2.1258 2004 Unknown [id number] 2.16.84 0.1.294174.3.579.2.9 2004 Unknown [id number] 2.16.84 0.1.327086.3.579.2.1259 2004 Unknown [id number] 2.16.84 0.1.733173.3.579.2.1259 2004 Unknown [id number] 2.16.84 0.1.755838.3.579.2.1259 2004 Unknown [id number] 2.16.84 0.1.927391.3.579.2.1259 2004 Unknown [id number] 2.16.84 0.1.043398.3.579.2.1259 Medicaid [employer] [id number] Unknown [id number] Unknown [id number] 2.16.8 [id number] Social History Date Type Detail Facility [facility]: [facility] Start: 2005 Sex Assigned At Female F [facility] Progress note 01-04-2021 Note Date & Type Note Facility 01-04-2021 Note HNO ID: [id number] Author: Sharron Arreola MD Service: ? Author Type: Physician Type: Progress Notes Filed: 01/07/2021 3:20 PM Note Text: INITIAL OUTPATIENT VISIT PEDIATRIC RHEUMATOLOGY SERVICE DATE: 01/04/2021 REFERRING PHYSICIAN: Daryl Shannon DO [address] [facility] [address] [place] [id number] PRIMARY CARE PHYSICIAN: Daryl Shannon DO ACCOMPANIED [...] Facility Evaluation note No assessment information availa [facility] Work Phone: Summary Purpose Family [...] section and content) DATE CREATED AUTHOR 10/17/2017 [facility] DATE CREATED AUTHOR AUTHOR'S ORGANIZ ATION 05/08/2021 [facility] DATE CREATED AUTHOR AUTHOR'S ORGANIZ ATION 08/16/2022 [facility] DATE CREATED AUTHOR AUTHOR'S ORGANIZ ATION 08/19/2022 [facility] dical Specialist DATE CREATED AUTHOR AUTHOR'S ORGANIZ ATION 12/29/2023 [facility] dical Specialists EPIC Care Teams (unrecognized [...] BE BASED ON THE PRIMARY CLINICAL RECORDS. [employer] provides no warranty or guarantee of the accuracy or completeness of information in this document.
--- NOTE | 2024-01-04 10:13 | US_ITS ---
[address] [address] Patient Name: CAROL LUX MRN: [facility]:[id number] date: 2005 Sex: F Assigned Patient Location: [facility] Current Patient Location: Accession/Order Number: [id number] Exam Date: 01/04/2024 10:15 Report Date: 01/04/2024 11:43 At the request of: MARIAM HUANG Procedure: US OB BPP w non-stress EXAMINATION: US OB BPP w non-stress HISTORY:Gestational diabetes COMPARISON: Ultrasound OB biophysical 12/28/2023 TECHNIQUE: Ultrasound biophysical profile was performed in the radiology department. BREATHING MOVEMENTS: 2 GROSS BODY MOVEMENTS: 2 TONE: 2 QUALITATIVE AMNIOTIC FLUID VOLUME: 2 PRESENTATION: CEPHALIC HEART RATE: 139.18 bpm AMNIOTIC FLUID VOLUME: 11.17 cm GESTATIONAL AGE: 38 weeks 2 days US/US OB BPP w non-stress IMPRESSION: Total biophysical profile score: 8 Electronically authenticated by: ELVIS ALMANZAR Date: 01/04/2024 11:43
[2024-01-04 10:32] VITALS: BP 121/66; PULSE 74
== END 2024-01-04 11:20 | disposition home or self-care (01) ==
LOC: US 06:57 → FBC 10:03
PROVIDERS: PCP Family Medicine; Visit Provider Physician Assistant
DX: O24.419 Gestational diabetes mellitus in pregnancy, unspecified control (principal); Z3A.38 38 weeks gestation of pregnancy
CPT/HCPCS: 76818

== ENCOUNTER 2024-01-08 07:14 | Outpatient (OUT) | payer MEDICAID, SELFPAY ==
--- OUTSIDE RECORDS SUMMARY | 2024-01-08 07:17 | XMS_ITS | CCD ---
Author Organization [facility] Inform ion Partnership [facility] Care Team Providers Care Greenhouse Laborer Name Role Phone ANTONIO MARCELO (LIQUID NATURAL G[employer] PLANT OPERATOR) Unavailable Unava ilable ANTONIO MARCELO (LIQUID NATURAL G[employer] PLANT OPERATOR) Unavailable Unava ilable DO Daryl Shannon Primary Care Provider [phone] VALERY Mandujano Emergency Provider Daryl Shannon Primary Care Unavailable Steve Mandujano Attending Unavailable Steve Mandujano Admitting Unavailable DOMO SANDHU Attending Unavailable MARIAM HUANG Attending Unavailable PHOEBE, DOMO Attending Unavailable PHOEBE, DOMO Attending Unavailable MARIAM HUANG Attending Unavailable MARIAM HUANG Attending Unavailable PHOEBE, DOMO Attending Unavailable MARIAM HUANG Attending Unavailable PHOEBE, DOMO Attending Unavailable PHOEBE, DOMO Attending Unavailable DOMO SANDHU Attending Unavailable Medications [...] 20, 2020 12:00am August 15, 2022 6:11pm [id number] 0.3 ml EPINEPHrine 1 mg/ml auto-injector (1 [...] by Deanne Hazel on 08/18/2022 1539 Normal [facility] Specialist Alanine aminotransferase [En zymatic activity/volume] in Serum or PlasmaOrdered By: Steve Mandujano on 08-15-2022 ALT [Catalytic activity/Vol] 16 U/L 7-52 [facility] Albumin [Mass/volume] in Ser um or Plasma by Bromocresol green (BCG) dye binding methoOrdered By: Steve Mandujano on 08-15-2022 Albumin BCG dye [Mass/Vol] 4.5 g/dL 3.5-5.7 [facility] Alkaline phosphatase [Enzyma tic activity/volume] in Serum or PlasmaOrdered By: Steve Mandujano on 08-15-2022 ALP [Catalytic activity/Vol] 82 U/L 34-104 [facility] Aspartate aminotransferase [ Enzymatic activity/volume] in Serum or PlasmaOrdered By: Steve Mandujano on 08-15-2022 AST [Catalytic activity/Vol] 19 U/L 13-39 [facility] Basophils Auto (Bld) [#/Vol] Ordered By: Steve Mandujano on 08-15-2022 Basophils (Bld) [#/Vol] 0.0 10*3/uL 0.0-0.1 [facility] Basophils/100 WBC Auto (Bld) Ordered By: Steve Mandujano on 08-15-2022 Basophils/100 WBC (Bld) 0.4 % . [facility] Bilirubin.total [Mass/volume ] in Serum or PlasmaOrdered By: Steve Mandujano on 08-15-2022 Bilirubin [Mass/Vol] 0.7 mg/dL 0.3-1.0 [facility] Calcium [Mass/volume] in Ser um or PlasmaOrdered By: Steve Mandujano on 08-15-2022 Calcium [Mass/Vol] 8.8 mg/dL 8.6-10.3 [facility] Carbon dioxide, total [Moles /volume] in Serum or PlasmaOrdered By: Steve Mandujano on 08-15-2022 CO2 [Moles/Vol] 22.0 mmol/L 21.0-31.0 [facility] Chloride [Moles/volume] in S jennie or PlasmaOrdered By: Steve Madnujano on 08-15-2022 Chloride [Moles/Vol] 101 mmol/L 98-107 [facility] Complete Blood Count Auto Di ffon 08-15-2022 Basophils (Bld) [#/Vol] 0.0 10*3/uL Normal 0.0-0.1 [facility] Comment on above: Result Comment: PERF ORMED BY: [facility] [address] [place] [address] PATHOLOGIST [employer] SUPERVISOR PHILIP GONZALEZ M.D. Performed By: #### L IPASE, CMP, CBC #### [facility] [address] Basophils/100 WBC (Bld) 0.4 % Normal . [facility] Comment on above: Performed By: #### L IPASE, CMP, CBC #### [facility] [address] [place] [address] [place] Eosinophils (Bld) [#/Vol] 0.0 10*3/uL Normal 0.0-0.7 [facility] Comment on above: Performed By: #### L IPASE, CMP, CBC #### [facility] [address] [place] [address] [place] Eosinophils/100 WBC (Bld) 0.6 % Normal . [facility] Comment on above: Performed By: #### L IPASE, CMP, CBC #### [facility] [address] Erythrocyte distribution width (RBC) [Ratio] 13.2 % Normal 11.9-15.3 [facility] Comment on above: Performed By: #### L IPASE, CMP, CBC #### [facility] [address] Hematocrit (Bld) [Volume fraction] 37.2 % Normal 36.0-46.0 [facility] Comment on above: Performed By: #### L IPASE, CMP, CBC #### [facility] [address] Hemoglobin (Bld) [Mass/Vol] 12.5 g/dL Normal 12.0-16.0 [facility] Comment on above: Performed By: #### L IPASE, CMP, CBC #### [address] Lymphocytes (Bld) [#/Vol] 0.8 10*3/uL Low 1.20-4.8 [facility] Comment on above: Performed By: #### L IPASE, CMP, CBC #### [address] Lymphocytes/100 WBC (Bld) 9.9 % Normal . [facility] Comment on above: Performed By: #### L IPASE, CMP, CBC #### [facility] [address] MCH (RBC) [Entitic mass] 28.6 pg Normal 25.0-35.0 [facility] Comment on above: Performed By: #### L IPASE, CMP, CBC #### [address] MCV (RBC) [Entitic vol] 85.4 fL Normal 78-102 [facility] Comment on above: Performed By: #### L IPASE, CMP, CBC #### [facility] [address] Mean Corpuscular HGB Conc 33.5 g/dL Normal 31.0-37.0 [facility] Comment on above: Performed By: #### L IPASE, CMP, CBC #### [facility] [address] [place] [address] [place] Monocytes (Bld) [#/Vol] 0.8 10*3/uL Normal 0.1-1.00 [facility] Comment on above: Performed By: #### L IPASE, CMP, CBC #### [facility] [address] [place] [address] [place] Monocytes/100 WBC (Bld) 17.61 % Normal 0.00-20.00 [facility] Comment on above: Performed By: #### L IPASE, CMP, CBC #### [facility] [address] [place] [address] [place] Monocytes/100 WBC (Bld) 9.9 % Normal . [facility] Comment on above: Performed By: #### L IPASE, CMP, CBC #### [facility] [address] [place] [address] [place] Neutrophils (Bld) [#/Vol] 6.6 10*3/uL Normal 1.2-7.7 [facility] Comment on above: Performed By: #### L IPASE, CMP, CBC #### [facility] [address] [place] [id number] [place] Neutrophils/100 WBC (Bld) 79.2 % Normal . [facility] Comment on above: Performed By: #### L IPASE, CMP, CBC #### [facility] [address] [place] [address] [place] NRBC% 0.1 /100{WBC} Normal 0-0.5 [facility] Comment on above: Performed By: #### L IPASE, CMP, CBC #### [facility] [address] [place] [address] [place] Platelet mean volume (Bld) [Entitic vol] 7.9 fL Normal 6.3-10.7 [facility] Comment on above: Performed By: #### L IPASE, CMP, CBC #### [facility] [address] [place] [address] Platelets (Bld) [#/Vol] 210 10*3/uL Normal 150-450 [facility] Comment on above: Performed By: #### L IPASE, CMP, CBC #### [address] RBC (Bld) [#/Vol] 4.36 10*6/uL Normal 4.10-5.10 [facility] Comment on above: Performed By: #### L IPASE, CMP, CBC #### [address] WBC (Bld) [#/Vol] 8.4 10*3/uL Normal 4.5-13.5 [facility] Comment on above: Performed By: #### L IPASE, CMP, CBC #### [address] Comprehensive Metabolic Pane gisell 08-15-2022 Albumin [Mass/Vol] 4.5 g/dL Normal 3.5-5.7 [facility] Comment on above: Performed By: #### L IPASE, CMP, CBC #### [address] Albumin/Globulin [Mass ratio] 1.6 {ratio} Normal [facility] Comment on above: Performed By: #### L IPASE, CMP, CBC #### [address] ALP [Catalytic activity/Vol] 82 U/L Normal 34-104 [facility] Comment on above: Performed By: #### L IPASE, CMP, CBC #### [address] ALT [Catalytic activity/Vol] 16 U/L Normal 7-52 [facility] Comment on above: Performed By: #### L IPASE, CMP, CBC #### [address] Anion gap [Moles/Vol] 13.8 mmol/L Normal 6.0-15.0 [facility] Comment on above: Performed By: #### L IPASE, CMP, CBC #### [facility] [address] AST [Catalytic activity/Vol] 19 U/L Normal 13-39 [facility] Comment on above: Performed By: #### L IPASE, CMP, CBC #### [facility] [address] Bilirubin [Mass/Vol] 0.7 mg/dL Normal 0.3-1.0 [facility] Comment on above: Performed By: #### L IPASE, CMP, CBC #### [facility] [address] Calcium [Mass/Vol] 8.8 mg/dL Normal 8.6-10.3 [facility] Comment on above: Performed By: #### L IPASE, CMP, CBC #### [address] Chloride [Moles/Vol] 101 mmol/L Normal 98-107 [facility] Comment on above: Performed By: #### L IPASE, CMP, CBC #### [address] CO2 [Moles/Vol] 22.0 mmol/L Normal 21.0-31.0 [facility] Comment on above: Performed By: #### L IPASE, CMP, CBC #### [facility] [address] Creatinine [Mass/Vol] 0.81 mg/dL Normal 0.60-1.20 [facility] Comment on above: Performed By: #### L IPASE, CMP, CBC #### [facility] [address] Creatinine Clr Calc Pharmacy 120.43 Normal [facility] Comment on above: Performed By: #### L IPASE, CMP, CBC #### [facility] [address] GFR/1.73 sq M.predicted MDRD (S/P/Bld) [Vol rate/Area] mL/min/{1.73_m2} Normal [facility] Comment on above: Performed By: #### L IPASERAHEEL, CBC #### [facility] [address] Globulin (S) [Mass/Vol] 2.8 g/dL Normal [facility] Comment on above: Performed By: #### L IPASE CMP, CBC #### [facility] [address] Glucose [Mass/Vol] 93 mg/dL Normal 70-100 [facility] Comment on above: Result Comment: [facility] Glucose Reference Range is dependent on time and content of last meal. Glucose of more than 200 mg/dL in a nonstressed, ambulatory subject supports the diagnosis of Diabetes Mellitus. ADA recommended reference range Performed By: #### L IPARAHEEL WINTER, CBC #### [address] Potassium [Moles/Vol] 3.8 mmol/L Normal 3.5-5.1 [facility] Comment on above: Performed By: #### L IPARAHEEL WINTER, CBC #### [address] Protein [Mass/Vol] 7.3 g/dL Normal 6.4-8.9 [facility] Comment on above: Performed By: #### L IPASE CMP, CBC #### [address] Sodium [Moles/Vol] 133 mmol/L Low 136-145 [facility] Comment on above: Performed By: #### L IPASE CMP, CBC #### [address] Urea nitrogen [Mass/Vol] 16 mg/dL Normal 7-25 [facility] Comment on above: Performed By: #### L IPASE CMP, CBC #### [address] Creatinine [Mass/volume] in Serum or PlasmaOrdered By: Steve Mandujano on 08-15-2022 Creatinine [Mass/Vol] 0.81 mg/dL 0.60-1.20 [facility] Eosinophils Auto (Bld) [#/Vo l]Ordered By: Steve Mandujano on 08-15-2022 Eosinophils (Bld) [#/Vol] 0.0 10*3/uL 0.0-0.7 [facility] Eosinophils/100 WBC Auto (Bl d)Ordered By: Steve Mandujano on 08-15-2022 Eosinophils/100 WBC (Bld) 0.6 % . [facility] Erythrocyte distribution wid th Auto (RBC) [Ratio]Ordered By: Steve Mandujano on 08-15-2022 Erythrocyte distribution width (RBC) [Ratio] 13.2 % 11.9-15.3 [facility] Globulin Calc (S) [Mass/Vol] Ordered By: Steve Mandujano on 08-15-2022 Globulin (S) [Mass/Vol] 2.8 g/dL [facility] Glucose [Mass/volume] in Ser um [...] Hematocrit (Bld) [Volume fraction] 37.2 % 36.0-46.0 [facility] Hemoglobin [Mass/volume] in BloodOrdered By: Steve Mandujano on 08-15-2022 Hemoglobin (Bld) [Mass/Vol] 12.5 g/dL 12.0-16.0 [facility] Leukocytes [#/volume] correc lilly for nucleated erythrocytes in Blood by Automated counOrdered By: Steve Mandujano on 08-15-2022 WBC corrected for nucl RBC Auto (Bld) [#/Vol] 8.4 10*3/uL 4.5-13.5 [facility] Lipaseon 05-08-2023 Lipase [Catalytic activity/Vol] 11.0 U/L Normal 11.0-82.0 [facility] Comment on above: Result Comment: PERF ORMED BY: [place] [id number] PATHOLOGIST [employer] SUPERVISOR PHILIP GONZALEZ M.D. Performed By: #### L IPASE, CMP, CBC #### [facility] [address] Lipase [Enzymatic activity/v olume] in Serum or PlasmaOrdered By: Steve Mandujano on 08-15-2022 Lipase [Catalytic activity/Vol] 11.0 U/L 11.0-82.0 [facility] Lymphocytes Auto (Bld) [#/Vo l]Ordered By: Steve Mandujano on 08-15-2022 Lymphocytes (Bld) [#/Vol] 0.8 10*3/uL 1.20-4.8 [facility] Lymphocytes/100 WBC Auto (Bl d)Ordered By: Steve Mandujano on 08-15-2022 Lymphocytes/100 WBC (Bld) 9.9 % . [facility] MCH Auto (RBC) [Entitic mass ]Ordered By: Steve Mandujano on 08-15-2022 MCH (RBC) [Entitic mass] 28.6 pg 25.0-35.0 [facility] MCHC Auto (RBC) [Mass/Vol]Or dered By: Steve Mandujano on 08-15-2022 MCHC (RBC) [Mass/Vol] 33.5 g/dL 31.0-37.0 [facility] MCV Auto (RBC) [Entitic vol] Ordered By: Steve Mandujano on 08-15-2022 MCV (RBC) [Entitic vol] 85.4 fL 78-102 [facility] Monocyte distribution width [Entitic volume] in Blood by AutomatedOrdered By: Steve Mandujano on 08-15-2022 Monocyte distribution width Auto (Bld) [Entitic vol] 17.61 % 0.00-20.00 [facility] Monocytes Auto (Bld) [#/Vol] Ordered By: Steve Mandujano on 08-15-2022 Monocytes (Bld) [#/Vol] 0.8 10*3/uL 0.1-1.00 [facility] Monocytes/100 WBC Auto (Bld) Ordered By: Steve Mandujano on 08-15-2022 Monocytes/100 WBC (Bld) 9.9 % . [facility] Neutrophils Auto (Bld) [#/Vo l]Ordered By: Steve Mandujano on 08-15-2022 Neutrophils (Bld) [#/Vol] 6.6 10*3/uL 1.2-7.7 [facility] Neutrophils/100 WBC Auto (Bl d)Ordered By: Steve Mandujano on 08-15-2022 Neutrophils/100 WBC (Bld) 79.2 % . [facility] No Panel InformationOrdered By: Steve Mandujano on 08-15-2022 Estimated GFR (CKD-EPI) > 60.0 mL/Min [facility] Creatinine Clearance (Chem 120.43 [facility] Nucleated erythrocytes [Pres ence] in Blood by Automated countOrdered By: Steve Mandujano on 08-15-2022 Nucleated RBC Auto Ql (Bld) 0.1 /100{WBC} 0-0.5 [facility] Platelet mean volume Auto (B ld) [Entitic vol]Ordered By: Steve Mandujano on 08-15-2022 Platelet mean volume (Bld) [Entitic vol] 7.9 fL 6.3-10.7 [facility] Platelets Auto (Bld) [#/Vol] Ordered By: Steve Mandujano on 08-15-2022 Platelets (Bld) [#/Vol] 210 10*3/uL 150-450 [facility] Potassium [Moles/volume] in Serum or PlasmaOrdered By: Steve Mandujano on 08-15-2022 Potassium [Moles/Vol] 3.8 mmol/L 3.5-5.1 [facility] Protein [Mass/volume] in Ser um or PlasmaOrdered By: Steve Mandujano on 08-15-2022 Protein [Mass/Vol] 7.3 g/dL 6.4-8.9 [facility] RBC Auto (Bld) [#/Vol]Ordere d By: Steve Mandujano on 08-15-2022 RBC (Bld) [#/Vol] 4.36 10*6/uL 4.10-5.10 [facility] Serum or plasma albumin/glob ulin mass ratioOrdered By: Steve Mandujano on 08-15-2022 Albumin/Globulin [Mass ratio] 1.6 {ratio} [facility] Serum or plasma anion gap de terminationOrdered By: Steve Mandujano on 08-15-2022 Anion gap [Moles/Vol] 13.8 mmol/L 6.0-15.0 [facility] Sodium [Moles/volume] in Ser um or PlasmaOrdered By: Steve Mandujano on 08-15-2022 Sodium [Moles/Vol] 133 mmol/L 136-145 [facility] Urea nitrogen [Mass/volume] in Serum or PlasmaOrdered By: Steve Mandujano on 08-15-2022 Urea nitrogen [Mass/Vol] 16 mg/dL 7-25 [facility] WBC Auto (Bld) [#/Vol]Ordere d By: Steve Mandujano on 08-15-2022 WBC (Bld) [#/Vol] 8.4 10*3/uL 4.5-13.5 [facility] CNCOon 01-06-2021 CNCO Letter Text Normal [facility] CNOVon 01-04-2021 CNOV Office Visit (PERHAV ) CAROL LUX ([id number]) 3 F Date Time Provider Department 01/04/21 [...] [address] [facility] [address] PRIMARY CARE PHYSICIAN: Daryl Shannon DO ACCOMPANIED [...] (more content not included)... Normal [facility] PROGRESSon 10-17-2017 Protein HNO ID: [id number]: Reba Christophernh) GolayService: RadiologyAuthor Type: Cardiac SonographerType: Progress NotesFiled: 10/17/2017 10:42 AMNote Text: Radiology Service Progress NotePATIENT NAME: Carol ZapataN: [id number] OF SERVICE: October 17, 2017TIME: 10:40 AMPATIENT IDENTITY VERIFICATION COMPLETED USING TWO (2) METHODS: Patientconfirmed name verbally and ID band matches..PATIENT GENDER DATA: Female. status: : NoBreastfeeding status: NO. and N/APATIENT RELEVANT IMPLANT DATA REVIEWED: Not ApplicableRADIOLOGY DEPARTMENT: Ultrasound renalPERIPHERAL IV DATA: Not applicableSIGNED BY: Jacki Bailey 2017 10:40 AM [facility] Protein HNO ID: [id number]: Sandra (Rt) WallService: RadiologyAuthor Type: TechnicianType: Progress NotesFiled: 10/17/2017 10:03 AMNote Text: Radiology Service Progress NotePATIENT NAME: Carol ZapataN: [id number] OF SERVICE: October 17, 2017TIME: 10:03 AMPATIENT IDENTITY VERIFICATION COMPLETED USING TWO (2) METHODS: Patientconfirmed name verbally and Date of .PATIENT GENDER DATA: Female. status: : NoBreastfeeding status: NO.PATIENT RELEVANT IMPLANT DATA REVIEWED: YesRADIOLOGY DEPARTMENT: General X-ray: Exam(s) Completed: Abdomen X-RayAbdomenPERIPHERAL IV DATA: Not applicableSIGNED BY: Nikki Haley 2017 10:03 AM [facility] US KIDNEY/BLADDERon 10-18-19 18 US KIDNEY/BLADDER * * *Final Report* * *DATE OF EXAM: Oct 17 2017 10:35AM [facility] 1055 - KIDNEY/BLADDER / REASON: [...] appearance of the kidneys and bladder.Transcriptioni st[facility] Transcribe Date/Time: Oct 17 2017 10:39ADictated by : ARMANDO GONZALEZ MDThiok examination was interpreted and the report reviewed and electronically signed by: SHARDA GUERIN MD on Oct 17 2017 11:06AM [id number] [facility] XR ABDOMEN 1V SUPINEon 10-17 XR [...] Large amount of fecal material in the colon.Director Of Materials Management : [facility] Transcribe Date/Time: Oct 17 2017 10:32ADictated by : Go GUZMAN examination was interpreted and the report reviewed and electronically signed by: SASHA MANDUJANO MD on Oct 17 2017 10:33AM [id number] [facility] Vital Signs Date Time Vital Sign Value Performing Clinician Turner bolanos 08-15-2022 19:52-0400 Diastolic blood pressure 60 mm[Hg] DO Daryl Shannon Work Phone: [facility] 08-15-2022 19:52-0400 Heart rate 78 /min DO Daryl Petznick Work Phone: [facility] 08-15-2022 19:52-0400 Respiratory rate 18 /min DO Daryl Shannon Work Phone: [facility] 08-15-2022 19:52-0400 SaO2% (BldA) [Mass fraction] 98 % DO Daryl Shannon Work Phone: [facility] 08-15-2022 19:52-0400 Systolic blood pressure 119 mm[Hg] DO Daryl Shannon Work Phone: [facility] 08-15-2022 18:47-0400 Body temperature 97.6 [degF] DO Daryl Shannon Work Phone: [facility] 08-15-2022 17:41-0400 Body height 160.02 cm DO Daryl Shannon Work Phone: [facility] 08-15-2022 17:41-0400 Body weight 90.71 kg DO Daryl Shannon Work Phone: [facility] Encounters Encounter Date Encounter Type Care Provider Facility Start: 01-03-2024 End: 01-03-2024 ambulatory DOMO PHOEBE Not Available Start: 12-27-2023 End: 12-27-2023 ambulatory DOMO PHOEBE [...] Available Start: 07-10-2023 End: 07-10-2023 ambulatory DOMO SANDHU Not Available Start: 06-09-2023 End: 06-09-2023 ambulatory DOMO ZAMARRIPAO Not Available Start: 08-15-2022 End: 08-15-2022 Emergency department patient visit Daryl Shannon Facility:[facility] Start: 08-15-2022 End: 08-15-2022 Emergency department patient visit DO Daryl Shannon Work Phone: [facility] Work Phone: Start: 10-17-2017 Ambulatory ANTONIO Caballero (CN P) [facility] Plan of Treatment Date Care Activity Detail Author Patient Education Abdominal Pain, Adult E D [facility] Work Phone: Patient referral [facility] Work Phone: Payers Date Payer Category Payer Self-pay [id number] 2022 Unknown [id number] 2022 Medicaid [id number] 2004 Unknown [id number] 2.16.84 [id number] 2004 Unknown [id number] 2.16.84 0.1.140202.3.579.2.1258 2004 Unknown [id number] 2.16.84 0.1.341913.3.579.2.1258 2004 Unknown [id number] 2.16.84 0.1.830513.3.579.2.9 2004 Unknown [id number] 2.16.84 0.1.420369.3.579.2.1258 2004 Unknown [id number] 2.16.84 0.1.086978.3.579.2.1259 2004 Unknown [id number] 2.16.84 0.1.458375.3.579.2.1259 2004 Unknown [id number] 2.16.84 0.1.844163.3.579.2.1259 2004 Unknown [id number] 2.16.84 0.1.369200.3.579.2.1259 2004 Unknown [id number] 2.16.84 0.1.385650.3.579.2.1259 2004 Unknown [id number] 2.16.84 0.1.767634.3.579.2.1259 2004 Unknown [id number] 2.16.84 0.1.825183.3.579.2.1259 Medicaid [employer] [id number] Unknown O [id number] Unknown [id number] 2.16.8 [id number] Social History Date Type Detail Facility [facility]: [facility] Start: 2005 Sex Assigned At Female F [facility] Progress note 01-04-2021 Note Date & Type Note Facility 01-04-2021 Note HNO ID: [id number] Author: Sharron Arreola MD Service: ? Author Type: Physician Type: Progress Notes Filed: 01/07/2021 3:20 PM Note Text: INITIAL OUTPATIENT VISIT PEDIATRIC RHEUMATOLOGY SERVICE DATE: 01/04/2021 REFERRING PHYSICIAN: Daryl Shannon DO [address] [facility] [address] [facility] [address] PRIMARY CARE PHYSICIAN: Daryl Shannon DO ACCOMPANIED [...] EP (more content not included)... [facility] Evaluation note Note Date & Type Note Facility Evaluation note No assessment information availa [facility] Work Phone: Summary Purpose Family History No [...] section and content) DATE CREATED AUTHOR 10/17/2017 [facility] DATE CREATED AUTHOR AUTHOR'S ORGANIZ ATION 05/08/2021 [facility] DATE CREATED AUTHOR AUTHOR'S ORGANIZ ATION 08/16/2022 [facility] DATE CREATED AUTHOR AUTHOR'S ORGANIZ ATION 08/19/2022 [facility] dical Specialist DATE CREATED AUTHOR AUTHOR'S ORGANIZ ATION 01/05/2024 [facility] dical Specialists EPIC Care Teams (unrecognized [...] BE BASED ON THE PRIMARY CLINICAL RECORDS. [employer] provides no warranty or guarantee of the accuracy or completeness of information in this document.
[2024-01-08 10:16] VITALS: BP 114/64; PULSE 97
== END 2024-01-08 10:40 ==
LOC: FBCO 08:04 → FBC 10:09
PROVIDERS: PCP Family Medicine; Visit Provider Obstetrics & Gynecology
DX: O24.419 Gestational diabetes mellitus in pregnancy, unspecified control (principal); Z3A.38 38 weeks gestation of pregnancy
CPT/HCPCS: 59025

== ENCOUNTER 2024-01-09 17:30 | Inpatient (IN) | payer MEDICAID, SELFPAY ==
[2024-01-09] VITALS (17 sets, daily range): BP systolic 117–134; BP diastolic 62–87; PULSE 76–103; TEMP 36.6–36.7
--- OUTSIDE RECORDS SUMMARY | 2024-01-09 17:38 | XMS_ITS | CCD ---
Author Organization [facility] Inform ion Partnership [facility] Care Team Providers Care Resolution Specialist Name Role Phone ANTONIO MARCELO (BLOOD OR BLOOD BANK TECHNICIAN) Unavailable Unava ilable ANTONIO MARCELO (BLOOD OR BLOOD BANK TECHNICIAN) Unavailable Unava ilable DO Daryl Shannon [...] 20, 2020 12:00am August 15, 2022 6:11pm [id number] 0.3 ml EPINEPHrine 1 mg/ml auto-injector (1 [...] by Deanne Hazel on 08/18/2022 1539 Normal [facility] Specialist Alanine aminotransferase [En zymatic activity/volume] in Serum or PlasmaOrdered By: Steve Mandujano on 08-15-2022 ALT [Catalytic activity/Vol] 16 U/L 7-52 [facility] Albumin [Mass/volume] in Ser um or Plasma by Bromocresol green (BCG) dye binding methoOrdered By: Steve Mandujano on 08-15-2022 Albumin BCG dye [Mass/Vol] 4.5 g/dL 3.5-5.7 [facility] Alkaline phosphatase [Enzyma tic activity/volume] in Serum or PlasmaOrdered By: Steve Mandujano on 08-15-2022 ALP [Catalytic activity/Vol] 82 U/L 34-104 [facility] Aspartate aminotransferase [ Enzymatic activity/volume] in Serum or PlasmaOrdered By: Steve Mandujano on 08-15-2022 AST [Catalytic activity/Vol] 19 U/L 13-39 [facility] Basophils Auto (Bld) [#/Vol] Ordered By: Steve Mandujano on 08-15-2022 Basophils (Bld) [#/Vol] 0.0 10*3/uL 0.0-0.1 [facility] Basophils/100 WBC Auto (Bld) Ordered By: Steve Mandujano on 08-15-2022 Basophils/100 WBC (Bld) 0.4 % . F [facility] Bilirubin.total [Mass/volume ] in Serum or PlasmaOrdered By: Steve Mandujano on 08-15-2022 Bilirubin [Mass/Vol] 0.7 mg/dL 0.3-1.0 [facility] Calcium [Mass/volume] in Ser um or PlasmaOrdered By: Steve Mandujano on 08-15-2022 Calcium [Mass/Vol] 8.8 mg/dL 8.6-10.3 [facility] Carbon dioxide, total [Moles /volume] in Serum or PlasmaOrdered By: Steve Mandujano on 08-15-2022 CO2 [Moles/Vol] 22.0 mmol/L 21.0-31.0 [facility] Chloride [Moles/volume] in S jennie or PlasmaOrdered By: Steve Mandujano on 08-15-2022 Chloride [Moles/Vol] 101 mmol/L 98-107 [facility] Complete Blood Count Auto Di ffon 08-15-2022 Basophils (Bld) [#/Vol] 0.0 10*3/uL Normal 0.0-0.1 [facility] Comment on above: Result Comment: PERF ORMED BY: [facility] [address] [place] [address] PATHOLOGIST LOG SNAKER PHILIP GONZALEZ M.D. Performed By: #### L IPASE, CMP, CBC #### [facility] [address] Basophils/100 WBC (Bld) 0.4 % Normal . F [facility] Comment on above: Performed By: #### L IPASE, CMP, CBC #### [facility] [address] [place] [address] [place] Eosinophils (Bld) [#/Vol] 0.0 10*3/uL Normal 0.0-0.7 [facility] Comment on above: Performed By: #### L IPASE, CMP, CBC #### [facility] [address] [place] [address] [place] Eosinophils/100 WBC (Bld) 0.6 % Normal . [facility] Comment on above: Performed By: #### L IPASE, CMP, CBC #### [facility] [address] Erythrocyte distribution width (RBC) [Ratio] 13.2 % Normal 11.9-15.3 [facility] Comment on above: Performed By: #### L IPASE, CMP, CBC #### [facility] [address] Hematocrit (Bld) [Volume fraction] 37.2 % Normal 36.0-46.0 [facility] Comment on above: Performed By: #### L IPASE, CMP, CBC #### [facility] [address] Hemoglobin (Bld) [Mass/Vol] 12.5 g/dL Normal 12.0-16.0 [facility] Comment on above: Performed By: #### L IPASE, CMP, CBC #### [address] Lymphocytes (Bld) [#/Vol] 0.8 10*3/uL Low 1.20-4.8 [facility] Comment on above: Performed By: #### L IPASE, CMP, CBC #### [address] Lymphocytes/100 WBC (Bld) 9.9 % Normal . [facility] Comment on above: Performed By: #### L IPASE, CMP, CBC #### [facility] [address] MCH (RBC) [Entitic mass] 28.6 pg Normal 25.0-35.0 [facility] Comment on above: Performed By: #### L IPASE, CMP, CBC #### [address] MCV (RBC) [Entitic vol] 85.4 fL Normal 78-102 F [facility] Comment on above: Performed By: #### L IPASE, CMP, CBC #### [facility] [address] Mean Corpuscular HGB Conc 33.5 g/dL Normal 31.0-37.0 [facility] Comment on above: Performed By: #### L IPASE, CMP, CBC #### [facility] [address] [place] [address] [place] Monocytes (Bld) [#/Vol] 0.8 10*3/uL Normal 0.1-1.00 [facility] Comment on above: Performed By: #### L IPASE, CMP, CBC #### [facility] [address] [place] [address] [place] Monocytes/100 WBC (Bld) 17.61 % Normal 0.00-20.00 [facility] Comment on above: Performed By: #### L IPASE, CMP, CBC #### [facility] [address] [place] [address] [place] Monocytes/100 WBC (Bld) 9.9 % Normal . F [facility] Comment on above: Performed By: #### L IPASE, CMP, CBC #### [facility] [address] [place] [address] [place] Neutrophils (Bld) [#/Vol] 6.6 10*3/uL Normal 1.2-7.7 [facility] Comment on above: Performed By: #### L IPASE, CMP, CBC #### [facility] [address] [place] [id number] [place] Neutrophils/100 WBC (Bld) 79.2 % Normal . [facility] Comment on above: Performed By: #### L IPASE, CMP, CBC #### [facility] [address] [place] [address] [place] NRBC% 0.1 /100{WBC} Normal 0-0.5 [facility] Comment on above: Performed By: #### L IPASE, CMP, CBC #### [facility] [address] [place] [address] [place] Platelet mean volume (Bld) [Entitic vol] 7.9 fL Normal 6.3-10.7 [facility] Comment on above: Performed By: #### L IPASE, CMP, CBC #### [facility] [address] [place] [address] Platelets (Bld) [#/Vol] 210 10*3/uL Normal 150-450 [facility] Comment on above: Performed By: #### L IPASE, CMP, CBC #### [address] RBC (Bld) [#/Vol] 4.36 10*6/uL Normal 4.10-5.10 [facility] Comment on above: Performed By: #### L IPASE, CMP, CBC #### [address] WBC (Bld) [#/Vol] 8.4 10*3/uL Normal 4.5-13.5 [facility] Comment on above: Performed By: #### L IPASE, CMP, CBC #### [address] Comprehensive Metabolic Pane gisell 08-15-2022 Albumin [Mass/Vol] 4.5 g/dL Normal 3.5-5.7 [facility] Comment on above: Performed By: #### L IPASE, CMP, CBC #### [address] Albumin/Globulin [Mass ratio] 1.6 {ratio} Normal [facility] Comment on above: Performed By: #### L IPASE, CMP, CBC #### [address] ALP [Catalytic activity/Vol] 82 U/L Normal 34-104 [facility] Comment on above: Performed By: #### L IPASE, CMP, CBC #### [address] ALT [Catalytic activity/Vol] 16 U/L Normal 7-52 [facility] Comment on above: Performed By: #### L IPASE, CMP, CBC #### [address] Anion gap [Moles/Vol] 13.8 mmol/L Normal 6.0-15.0 [facility] Comment on above: Performed By: #### L IPASE, CMP, CBC #### [facility] [address] AST [Catalytic activity/Vol] 19 U/L Normal 13-39 [facility] Comment on above: Performed By: #### L IPASE, CMP, CBC #### [facility] [address] Bilirubin [Mass/Vol] 0.7 mg/dL Normal 0.3-1.0 [facility] Comment on above: Performed By: #### L IPASE, CMP, CBC #### [facility] [address] Calcium [Mass/Vol] 8.8 mg/dL Normal 8.6-10.3 [facility] Comment on above: Performed By: #### L IPASE, CMP, CBC #### [address] Chloride [Moles/Vol] 101 mmol/L Normal 98-107 [facility] Comment on above: Performed By: #### L IPASE, CMP, CBC #### [address] CO2 [Moles/Vol] 22.0 mmol/L Normal 21.0-31.0 [facility] Comment on above: Performed By: #### L IPASE, CMP, CBC #### [facility] [address] Creatinine [Mass/Vol] 0.81 mg/dL Normal 0.60-1.20 [facility] Comment on above: Performed By: #### L IPASE, CMP, CBC #### [facility] [address] Creatinine Clr Calc Pharmacy 120.43 Normal [facility] Comment on above: Performed By: #### L IPASE, CMP, CBC #### [facility] [address] GFR/1.73 sq M.predicted MDRD (S/P/Bld) [Vol rate/Area] mL/min/{1.73_m2} Normal [facility] Comment on above: Performed By: #### L IPASERAHEEL, CBC #### [facility] [address] Globulin (S) [Mass/Vol] 2.8 g/dL Normal [facility] Comment on above: Performed By: #### L IPASE CMP, CBC #### [facility] [address] Glucose [Mass/Vol] 93 mg/dL Normal 70-100 [facility] Comment on above: Result Comment: [facility] Glucose Reference Range is dependent on time and content of last meal. Glucose of more than 200 mg/dL in a nonstressed, ambulatory subject supports the diagnosis of Diabetes Mellitus. ADA recommended reference range Performed By: #### L IPARAHEEL WINTER, CBC #### [address] Potassium [Moles/Vol] 3.8 mmol/L Normal 3.5-5.1 [facility] Comment on above: Performed By: #### L IPARAHEEL WINTER, CBC #### [address] Protein [Mass/Vol] 7.3 g/dL Normal 6.4-8.9 [facility] Comment on above: Performed By: #### L IPASE CMP, CBC #### [address] Sodium [Moles/Vol] 133 mmol/L Low 136-145 [facility] Comment on above: Performed By: #### L IPASE CMP, CBC #### [address] Urea nitrogen [Mass/Vol] 16 mg/dL Normal 7-25 [facility] Comment on above: Performed By: #### L IPASE CMP, CBC #### [address] Creatinine [Mass/volume] in Serum or PlasmaOrdered By: Steve Mandujano on 08-15-2022 Creatinine [Mass/Vol] 0.81 mg/dL 0.60-1.20 [facility] Eosinophils Auto (Bld) [#/Vo l]Ordered By: Steve Mandujano on 08-15-2022 Eosinophils (Bld) [#/Vol] 0.0 10*3/uL 0.0-0.7 [facility] Eosinophils/100 WBC Auto (Bl d)Ordered By: Steve Mandujano on 08-15-2022 Eosinophils/100 WBC (Bld) 0.6 % . [facility] Erythrocyte distribution wid th Auto (RBC) [Ratio]Ordered By: Steve Mandujano on 08-15-2022 Erythrocyte distribution width (RBC) [Ratio] 13.2 % 11.9-15.3 [facility] Globulin Calc (S) [Mass/Vol] Ordered By: Steve Mandujano on 08-15-2022 Globulin (S) [Mass/Vol] 2.8 g/dL [facility] Glucose [Mass/volume] in Ser um or PlasmaOrdered By: Steve Mandujano on 08-15-2022 Glucose [Mass/Vol] 93 mg/dL 70-100 [facility] Comment on above: ADA recommended refe rence rangeRandom Glucose Reference Range is dependent on time and content of last meal. Glucose of more than 200 mg/dL in a nonstressed, ambulatory subject supports the diagnosis of Diabetes Mellitus. Hematocrit Auto (Bld) [Volum e fraction]Ordered By: Steve Mandujano on 08-15-2022 Hematocrit (Bld) [Volume fraction] 37.2 % 36.0-46.0 [facility] Hemoglobin [Mass/volume] in BloodOrdered By: Steve Mandujano on 08-15-2022 Hemoglobin (Bld) [Mass/Vol] 12.5 g/dL 12.0-16.0 [facility] Leukocytes [#/volume] correc lilly for nucleated erythrocytes in Blood by Automated counOrdered By: Steve Mandujano on 08-15-2022 WBC corrected for nucl RBC Auto (Bld) [#/Vol] 8.4 10*3/uL 4.5-13.5 [facility] Lipaseon 05-08-2023 Lipase [Catalytic activity/Vol] 11.0 U/L Normal 11.0-82.0 [facility] Comment on above: Result Comment: PERF ORMED BY: [place] [address] PATHOLOGIST LOG SNAKER PHILIP GONZALEZ M.D. Performed By: #### L IPASE, CMP, CBC #### [facility] [address] Lipase [Enzymatic activity/v olume] in Serum or PlasmaOrdered By: Steve Mandujano on 08-15-2022 Lipase [Catalytic activity/Vol] 11.0 U/L 11.0-82.0 [facility] Lymphocytes Auto (Bld) [#/Vo l]Ordered By: Steve Mandujano on 08-15-2022 Lymphocytes (Bld) [#/Vol] 0.8 10*3/uL 1.20-4.8 [facility] Lymphocytes/100 WBC Auto (Bl d)Ordered By: Steve Mandujano on 08-15-2022 Lymphocytes/100 WBC (Bld) 9.9 % . [facility] MCH Auto (RBC) [Entitic mass ]Ordered By: Steve Mandujano on 08-15-2022 MCH (RBC) [Entitic mass] 28.6 pg 25.0-35.0 [facility] MCHC Auto (RBC) [Mass/Vol]Or dered By: Steve Mandujano on 08-15-2022 MCHC (RBC) [Mass/Vol] 33.5 g/dL 31.0-37.0 [facility] MCV Auto (RBC) [Entitic vol] Ordered By: Steve Mandujano on 08-15-2022 MCV (RBC) [Entitic vol] 85.4 fL 78-102 F [facility] Monocyte distribution width [Entitic volume] in Blood by AutomatedOrdered By: Steve Mandujano on 08-15-2022 Monocyte distribution width Auto (Bld) [Entitic vol] 17.61 % 0.00-20.00 [facility] Monocytes Auto (Bld) [#/Vol] Ordered By: Steve Mandujano on 08-15-2022 Monocytes (Bld) [#/Vol] 0.8 10*3/uL 0.1-1.00 [facility] Monocytes/100 WBC Auto (Bld) Ordered By: Steve Mandujano on 08-15-2022 Monocytes/100 WBC (Bld) 9.9 % . F [facility] Neutrophils Auto (Bld) [#/Vo l]Ordered By: Steve Mandujano on 08-15-2022 Neutrophils (Bld) [#/Vol] 6.6 10*3/uL 1.2-7.7 [facility] Neutrophils/100 WBC Auto (Bl d)Ordered By: Steve Mandujano on 08-15-2022 Neutrophils/100 WBC (Bld) 79.2 % . [facility] No Panel InformationOrdered By: Steve Mandujano on 08-15-2022 Estimated GFR (CKD-EPI) > 60.0 mL/Min [facility] Creatinine Clearance (Chem 120.43 [facility] Nucleated erythrocytes [Pres ence] in Blood by Automated countOrdered By: Steve Mandujano on 08-15-2022 Nucleated RBC Auto Ql (Bld) 0.1 /100{WBC} 0-0.5 [facility] Platelet mean volume Auto (B ld) [Entitic vol]Ordered By: Steve Mandujano on 08-15-2022 Platelet mean volume (Bld) [Entitic vol] 7.9 fL 6.3-10.7 [facility] Platelets Auto (Bld) [#/Vol] Ordered By: Steve Mandujano on 08-15-2022 Platelets (Bld) [#/Vol] 210 10*3/uL 150-450 [facility] Potassium [Moles/volume] in Serum or PlasmaOrdered By: Steve Mandujano on 08-15-2022 Potassium [Moles/Vol] 3.8 mmol/L 3.5-5.1 [facility] Protein [Mass/volume] in Ser um or PlasmaOrdered By: Steve Mandujano on 08-15-2022 Protein [Mass/Vol] 7.3 g/dL 6.4-8.9 [facility] RBC Auto (Bld) [#/Vol]Ordere d By: Steve Mandujano on 08-15-2022 RBC (Bld) [#/Vol] 4.36 10*6/uL 4.10-5.10 [facility] Serum or plasma albumin/glob ulin mass ratioOrdered By: Steve Mandujano on 08-15-2022 Albumin/Globulin [Mass ratio] 1.6 {ratio} [facility] Serum or plasma anion gap de terminationOrdered By: Steve Mandujano on 08-15-2022 Anion gap [Moles/Vol] 13.8 mmol/L 6.0-15.0 [facility] Sodium [Moles/volume] in Ser um or PlasmaOrdered By: Steve Mandujano on 08-15-2022 Sodium [Moles/Vol] 133 mmol/L 136-145 [facility] Urea nitrogen [Mass/volume] in Serum or PlasmaOrdered By: Steve Mandujano on 08-15-2022 Urea nitrogen [Mass/Vol] 16 mg/dL 7-25 [facility] WBC Auto (Bld) [#/Vol]Ordere d By: Steve Mandujano on 08-15-2022 WBC (Bld) [#/Vol] 8.4 10*3/uL 4.5-13.5 [facility] CNCOon 01-06-2021 CNCO Letter Text Normal [facility] CNOVon 01-04-2021 CNOV Office Visit (PERHAV ) CAROL LUX ([id number]) 3 F Date Time Provider Department 01/04/21 [...] DO [address] [place] [address] [place] [id number] PRIMARY CARE PHYSICIAN: Daryl Shannon DO ACCOMPANIED [...] (more content not included)... Normal [facility] PROGRESSon 10-17-2017 Protein HNO ID: [id number]: Reba Christopherde) GolayService: RadiologyAuthor Type: Cardiac SonographerType: Progress NotesFiled: 10/17/2017 10:42 AMNote Text: Radiology Service Progress NotePATIENT NAME: Carol ZapataN: [id number] OF SERVICE: October 17, 2017TIME: 10:40 AMPATIENT IDENTITY VERIFICATION COMPLETED USING TWO (2) METHODS: Patientconfirmed name verbally and ID band matches..PATIENT GENDER DATA: Female. status: : NoBreastfeeding status: NO. and N/APATIENT RELEVANT IMPLANT DATA REVIEWED: Not ApplicableRADIOLOGY DEPARTMENT: Ultrasound renalPERIPHERAL IV DATA: Not applicableSIGNED BY: Jacki Bailey 2017 10:40 AM [facility] Protein HNO ID: [id number]: Sandra (Rt) WallService: RadiologyAuthor Type: TechnicianType: Progress NotesFiled: 10/17/2017 10:03 AMNote Text: Radiology Service Progress NotePATIENT NAME: Carol ZapataN: [id number] OF SERVICE: October 17, 2017TIME: 10:03 AMPATIENT IDENTITY VERIFICATION COMPLETED USING TWO (2) METHODS: Patientconfirmed name verbally and Date of .PATIENT GENDER DATA: Female. status: : NoBreastfeeding status: NO.PATIENT RELEVANT IMPLANT DATA REVIEWED: YesRADIOLOGY DEPARTMENT: General X-ray: Exam(s) Completed: Abdomen X-RayAbdomenPERIPHERAL IV DATA: Not applicableSIGNED BY: Nikki Haley 2017 10:03 AM [facility] US KIDNEY/BLADDERon 10-18-19 18 US KIDNEY/BLADDER * * *Final Report* * *DATE OF EXAM: Oct 17 2017 10:35AM [facility] 1055 - KIDNEY/BLADDER / REASON: Urinary [...] appearance of the kidneys and bladder.Transcriptioni st: [facility] Transcribe Date/Time: Oct 17 2017 10:39ADictated by : ARMANDO GONZALEZ MDThiok examination was interpreted and the report reviewed and electronically signed by: SHARDA GUERIN MD on Oct 17 2017 11:06AM [id number] [facility] XR ABDOMEN 1V SUPINEon 10-17 [...] Large amount of fecal material in the colon.Labor And Employment Paralegal : [facility] Transcribe Date/Time: Oct 17 2017 10:32ADictated by : Go GUZMAN examination was interpreted and the report reviewed and electronically signed by: SASHA MANDUJANO MD on Oct 17 2017 10:33AM [id number] [facility] Vital Signs Date Time Vital Sign Value Performing Clinician Turner bolanos 08-15-2022 19:52-0400 Diastolic blood pressure 60 mm[Hg] DO Daryl Shannon Work Phone: [facility] 08-15-2022 19:52-0400 Heart rate 78 /min DO Daryl Petznick Work Phone: [facility] 08-15-2022 19:52-0400 Respiratory rate 18 /min DO Daryl Shannon Work Phone: [facility] 08-15-2022 19:52-0400 SaO2% (BldA) [Mass fraction] 98 % DO Daryl Shannon Work Phone: [facility] 08-15-2022 19:52-0400 Systolic blood pressure 119 mm[Hg] DO Daryl Shannon Work Phone: [facility] 08-15-2022 18:47-0400 Body temperature 97.6 [degF] DO Daryl Shannon Work Phone: [facility] 08-15-2022 17:41-0400 Body height 160.02 cm DO Daryl Shannon Work Phone: [facility] 08-15-2022 17:41-0400 Body weight 90.71 kg DO Daryl Shannon Work Phone: [facility] Encounters Encounter Date Encounter Type [...] 08-15-2022 Emergency department patient visit Daryl Shannon Facility:[facility] Start: 08-15-2022 End: 08-15-2022 Emergency department patient visit DO Daryl Shannon Work Phone: [facility] Work Phone: Start: 10-17-2017 Ambulatory ANTONIO Caballero (CN P) [facility] Plan of Treatment Date Care Activity Detail Author Patient Education Abdominal Pain, Adult E D [facility] Work Phone: Patient referral [facility] Work Phone: Payers Date Payer Category Payer Self-pay [id number] 2022 Unknown [id number] 2022 Medicaid [id number] 2004 Unknown [id number] 2.16.84 [id number] 2004 Unknown [id number] 2.16.84 0.1.013301.3.579.2.1258 2004 Unknown [id number] 2.16.84 0.1.752517.3.579.2.1258 2004 Unknown [id number] 2.16.84 0.1.415950.3.579.2.9 2004 Unknown [id number] 2.16.84 0.1.607517.3.579.2.1258 2004 Unknown [id number] 2.16.84 0.1.755845.3.579.2.1259 2004 Unknown [id number] 2.16.84 0.1.966727.3.579.2.1259 2004 Unknown [id number] 2.16.84 0.1.401478.3.579.2.1259 2004 Unknown [id number] 2.16.84 0.1.414271.3.579.2.1259 2004 Unknown [id number] 2.16.84 0.1.606720.3.579.2.1259 2004 Unknown [id number] 2.16.84 0.1.084072.3.579.2.1259 2004 Unknown [id number] 2.16.84 0.1.281790.3.579.2.1259 Medicaid [employer] [id number] Unknown O [id number] Unknown [id number] 2.16.8 [id number] Social History Date Type Detail Facility [facility]: [facility] Start: 2005 Sex Assigned At Female F [facility] Progress note 01-04-2021 Note Date & Type Note Facility 01-04-2021 Note HNO ID: [id number] Author: Sharron Arreola MD Service: ? Author Type: Physician Type: Progress Notes Filed: 01/07/2021 3:20 PM Note Text: INITIAL OUTPATIENT VISIT PEDIATRIC RHEUMATOLOGY SERVICE DATE: 01/04/2021 REFERRING PHYSICIAN: Daryl Shannon DO [address] [facility] [address] [place] [id number] PRIMARY CARE PHYSICIAN: Daryl Shannon DO ACCOMPANIED [...] EP (more content not included)... [facility] Evaluation note Note Date & Type Note Facility Evaluation note No assessment information availa [facility] Work Phone: Summary Purpose Family History [...] section and content) DATE CREATED AUTHOR 10/17/2017 [facility] DATE CREATED AUTHOR AUTHOR'S ORGANIZ ATION 05/08/2021 [facility] DATE CREATED AUTHOR AUTHOR'S ORGANIZ ATION 08/16/2022 [facility] DATE CREATED AUTHOR AUTHOR'S ORGANIZ ATION 08/19/2022 [facility] dical Specialist DATE CREATED AUTHOR AUTHOR'S ORGANIZ ATION 01/05/2024 [facility] dical Specialists EPIC Care Teams [...] BE BASED ON THE PRIMARY CLINICAL RECORDS. [employer] provides no warranty or guarantee of the accuracy or completeness of information in this document.
[2024-01-09 18:41] LABS: Glucometer 104 mg/dL (74-106)
[2024-01-09] MEDS: 0.9 % SODIUM CHLORIDE 1,000 ML 125 ML IV (18:53)
[2024-01-09] MEDS: OXYTOCIN/0.9 % SODIUM CHLORIDE 10 UNITS/500 ML PLAST..BAG 6 UNIT IV (18:58)
[2024-01-09 19:13] LABS: Hematocrit 30.7 % (36.0-48.0); Mean Corpuscular HGB Conc 32.6 g/dL (29.9-35.2); Mean Corpuscular Hemoglobin 26.9 pg (26.7-34.0); Mean Corpuscular Volume 82.5 fL (81.0-99.0); Mean Platelet Volume 10.7 fL (9.5-13.5); Platelet Count 283 10^3/uL (150-450); Red Blood Count 3.72 10^6/uL (4.20-5.40); Red Cell Distribution Width 14.5 % (11.0-15.0); White Blood Count 6.4 10^3/uL (4.0-11.0)
[2024-01-09 19:28] LABS: Amphetamine Screen Urine NEGATIVE (NEGATIVE); Barbiturates Screen Urine NEGATIVE (NEGATIVE); Benzodiazepines Screen Urine NEGATIVE (NEGATIVE); Buprenorphine Screen Urine NEGATIVE (NEGATIVE); Cannabinoid Screen Urine NEGATIVE (NEGATIVE); Cocaine Screen Urine NEGATIVE (NEGATIVE); Methadone Screen Urine NEGATIVE (NEGATIVE); Methamphetamines Screen Urine NEGATIVE (NEGATIVE); Opiate Screen Urine NEGATIVE (NEGATIVE); Oxycodone Screen Urine NEGATIVE (NEGATIVE); Phencyclidine Screen Urine NEGATIVE (NEGATIVE); Tricyclic Antidepressant Urine NEGATIVE (NEGATIVE)
[2024-01-10] VITALS (28 sets, daily range): BP systolic 116–156; BP diastolic 56–92; PULSE 76–109; TEMP 36.7–37
[2024-01-10] MEDS: NALBUPHINE HCL 10 MG/ML AMPULE IV (00:25)
[2024-01-10] MEDS: 0.9 % SODIUM CHLORIDE 1,000 ML 125 ML IV (03:00)
[2024-01-10] MEDS: OXYTOCIN/0.9 % SODIUM CHLORIDE 20 UNITS/1,000 ML PLAST..BAG 125 UNIT IV (05:21)
--- NOTE | 2024-01-10 05:31 | PM.OBPRCVD ---
Procedure Intrapartal events: None Induction method: per pitocin protocol Delivery augmentation: rupture of membranes and pitocin Delivery monitor: external FHT and external uterine Route of delivery: Episiotomy Description: midline L&D Laceration Description: perineal - 2nd degree Delivery repair: Vicryl Estimated blood loss (mL): 250 Anesthesia type: None Disposition: floor Delivery date: 01/10/24 Gender: female presentation: vertex Placental delivery description: Spontaneous cord description: 3 Vessels and Nuchal Cord
[2024-01-10] MEDS: IBUPROFEN 600 MG TABLET PO ×2 (05:53→16:23)
--- NOTE | 2024-01-10 08:24 | W.PC.ACHO ---
Registration Status: ADM IN Primary Language: Burmese Preferred Language: Burmese Report received from Anamaria RN at [id number]. Active Medications Generic Name Dose Route Start Last Admin Trade Name Freq PRN Reason Stop Dose Admin Acetaminophen 650 mg 01/10/24 05:33 Acetaminophen 325 Mg Tablet PO Q6H PRN Mild Pain Al Hydroxide/Mg Hydroxide 2,400 mg 01/10/24 05:33 Magnesium Hydroxide 2,400 Mg/10 Ml Oral.Susp PO Q6H PRN Dyspepsia Benzocaine/Menthol 1 applic 01/10/24 05:33 Benzocaine/Menthol 85 Gram [place] Bottle TOPICAL Q2H PRN Pain Carboprost Tromethamine 250 mcg 01/09/24 17:56 Carboprost Tromethamine 250 Mcg/Ml 1 Ml Vial IM 01/11/24 17:56 Q15M PRN Bleeding Cetirizine HCl 10 mg 01/09/24 20:08 Cetirizine Hcl 10 Mg Tablet PO Q2H PRN Angioedema Diphenhydramine HCl 25 mg 01/09/24 22:36 Diphenhydramine Hcl 50 Mg/Ml Vial IV 01/10/24 22:37 Q6H PRN Itching Diphtheria/Pertussis/Tetanus Vacc 0.5 ml 01/12/24 09:00 Adacel Diph,Pertuss(Acell),Tet Vac/Pf 0.5 Ml Adult Syringe IM 01/12/24 09:01 .ONCE ONE Docusate Sodium 100 mg 01/11/24 09:00 Docusate Sodium 100 Mg Capsule PO BID KENNEDY Ephedrine Sulfate 5 mg 01/09/24 22:36 Ephedrine Sulfate 50 Mg/Ml Vial IV 01/10/24 22:37 Q5M PRN Blood Pressure - Low Tranexamic Acid 1,000 mg/ 110 mls @ 440 mls/hr 01/09/24 17:56 Sodium Chloride IV 01/11/24 17:56 ONCE PRN Uterine Bleeding Sodium Chloride 1,000 mls @ 125 mls/hr 01/09/24 18:00 01/10/24 03:00 Sodium Chloride 0.9% 1,000 Ml IV 125 mls/hr .Q8H KENNEDY Administration Oxytocin/Sodium Chloride 10 units in 500 mls @ 6 mls/hr 01/09/24 18:00 01/10/24 05:13 Pitocin 10 Unit/500 Ml-Ns IV Infused TITR KENNEDY Infusion Protocol 2 MILLIUNIT/MIN Ropivacaine/Sodium Chloride 400 mg in 200 mls @ 6 mls/hr 01/09/24 22:45 Naropin 0.2% 400 Mg/200 Ml Bag EPIDURAL Q24H [facility] Ibuprofen 600 mg 01/10/24 05:33 01/10/24 05:53 Ibuprofen 600 Mg Tablet PO 600 mg Q6H PRN Administration Moderate Pain Lidocaine 1 ml 01/09/24 17:56 Lidocaine Hcl 1% 200 Mg/20 Ml Mdv INJ 01/11/24 17:59 ONCE PRN Pain Measles/Mumps/Rubella Vaccine Live 0.5 ml 01/12/24 09:00 Measles,Mumps,Rubella Vacc/Pf 0.5 Ml Vial SQ 01/12/24 09:01 .ONCE ONE Methylergonovine Maleate 0.2 mg 01/09/24 17:56 Methylergonovine Maleate 0.2 Mg/Ml Ampule IM 01/11/24 17:56 ONCE PRN Uterine Contractility/Contract Methylergonovine Maleate 0.2 mg 01/09/24 17:56 Methylergonovine Maleate 0.2 Mg Tablet PO 01/11/24 17:56 Q4H PRN Uterine Contractility/Contract Misoprostol 600 mcg 01/09/24 17:56 Misoprostol 100 Mcg Tablet PO 01/11/24 17:56 ONCE PRN Uterine Bleeding Misoprostol 800 mcg 01/09/24 17:56 Misoprostol 100 Mcg Tablet SL 01/11/24 17:56 ONCE PRN Uterine Bleeding Misoprostol 1,000 mcg 01/09/24 17:56 Misoprostol 100 Mcg Tablet VA 01/11/24 17:56 ONCE PRN Uterine Bleeding Nalbuphine HCl 10 mg 01/09/24 17:56 01/10/24 00:25 Nalbuphine Hcl 10 Mg/Ml Ampule IV 10 mg Q3H PRN Administration Pain Naloxone HCl 0.4 mg 01/09/24 22:36 Naloxone Hcl 0.4 Mg/Ml Vial IV 01/10/24 22:37 ONCE PRN respiratory depression Ondansetron HCl 4 mg 01/09/24 17:56 Ondansetron Pf 4 Mg/2 Ml Vial IV Q6H PRN Nausea And Vomiting Ondansetron HCl 4 mg 01/09/24 17:56 Ondansetron 4 Mg Rapdis Tablet SL Q6H PRN Nausea And Vomiting Oxytocin 10 unit 01/09/24 17:56 Oxytocin 10 Unit/Ml Vial IM 01/11/24 17:56 ONCE PRN Bleeding Senna 17.2 mg 01/10/24 20:00 Sennosides 8.6 Mg Tablet PO QHS PRN Constipation Simethicone 80 mg 01/10/24 05:33 Simethicone 80 Mg Tab.Chew PO QID PRN Abdominal Distention Temazepam 15 mg 01/10/24 05:33 Temazepam 15 Mg Capsule PO QHS PRN Sleep Witch Lori/Glycerin 1 pad 01/10/24 05:33 Glycerin/Witch Lori Pads TOPICAL Q2H PRN Pain Diet Category Date Time Status Regular Consistency Diet Diet 01/10/24 05:33 Active IV Insertion/Site Date of IV Line Insertion [20g 01/09/24 left Hand] IV Insertion Time [20g left 18:54 Hand] Neurology Patient orientation (short person,place,time,situation list) Respiratory Oxygen Delivery Method Room Air Oxygen Delivery Method Room Air Oxygen Delivery Method Room Air Bowels Bowel Pattern No Bowel Movement Renal Bladder Pattern Continent
[2024-01-10] MEDS: BENZOCAINE/MENTHOL 85 GRAM SPRAY BOTTLE 1 APPLIC TOPICAL (16:23)
[2024-01-10] MEDS: GLYCERIN/WITCH HAZEL PADS 1 PAD TOPICAL (16:23)
[2024-01-10 20:14] LABS: Glucometer 118 mg/dL (74-106)
--- NOTE | 2024-01-10 22:07 | W.PC.ACHO ---
Registration Status: ADM IN Primary Language: Nepalese Preferred Language: Nepalese report given to Jazmín WALDRON at 1900. Care relinquished. Active Medications Generic Name Dose Route Start Last Admin Trade Name Jean [place] PRN Reason Stop Dose Admin Acetaminophen 650 mg 01/10/24 05:33 Acetaminophen 325 Mg Tablet PO Q6H PRN Mild Pain Al Hydroxide/Mg Hydroxide 2,400 mg 01/10/24 05:33 Magnesium Hydroxide 2,400 Mg/10 Ml Oral.Susp PO Q6H PRN Dyspepsia Benzocaine/Menthol 1 applic 01/10/24 05:33 01/10/24 16:23 Benzocaine/Menthol 85 Gram [place] Bottle TOPICAL 1 applic Q2H PRN Administration Pain Carboprost Tromethamine 250 mcg 01/09/24 17:56 Carboprost Tromethamine 250 Mcg/Ml 1 Ml Vial IM 01/11/24 05:00 Q15M PRN Bleeding Cetirizine HCl 10 mg 01/09/24 20:08 Cetirizine Hcl 10 Mg Tablet PO Q2H PRN Angioedema Diphtheria/Pertussis/Tetanus Vacc 0.5 ml 01/12/24 09:00 Adacel Diph,Pertuss(Acell),Tet Vac/Pf 0.5 Ml Adult Syringe IM 01/12/24 09:01 .ONCE ONE Docusate Sodium 100 mg 01/11/24 09:00 Docusate Sodium 100 Mg Capsule PO BID KENNEDY Tranexamic Acid 1,000 mg/ 110 mls @ 440 mls/hr 01/09/24 17:56 Sodium Chloride IV 01/11/24 05:00 ONCE PRN Uterine Bleeding Sodium Chloride 1,000 mls @ 125 mls/hr 01/09/24 18:00 01/10/24 03:00 Sodium Chloride 0.9% 1,000 Ml IV 125 mls/hr .Q8H KENNEDY Administration Ibuprofen 600 mg 01/10/24 05:33 01/10/24 16:23 Ibuprofen 600 Mg Tablet PO 600 mg Q6H PRN Administration Moderate Pain Measles/Mumps/Rubella Vaccine Live 0.5 ml 01/12/24 09:00 Measles,Mumps,Rubella Vacc/Pf 0.5 Ml Vial SQ 01/12/24 09:01 .ONCE ONE Methylergonovine Maleate 0.2 mg 01/09/24 17:56 Methylergonovine Maleate 0.2 Mg/Ml Ampule IM 01/11/24 05:00 ONCE PRN Uterine Contractility/Contract Methylergonovine Maleate 0.2 mg 01/09/24 17:56 Methylergonovine Maleate 0.2 Mg Tablet PO 01/11/24 05:00 Q4H PRN Uterine Contractility/Contract Misoprostol 600 mcg 01/09/24 17:56 Misoprostol 100 Mcg Tablet PO 01/11/24 05:00 ONCE PRN Uterine Bleeding Misoprostol 800 mcg 01/09/24 17:56 Misoprostol 100 Mcg Tablet SL 01/11/24 05:00 ONCE PRN Uterine Bleeding Misoprostol 1,000 mcg 01/09/24 17:56 Misoprostol 100 Mcg Tablet MN 01/11/24 05:00 ONCE PRN Uterine Bleeding Ondansetron HCl 4 mg 01/09/24 17:56 Ondansetron Pf 4 Mg/2 Ml Vial IV Q6H PRN Nausea And Vomiting Ondansetron HCl 4 mg 01/09/24 17:56 Ondansetron 4 Mg Rapdis Tablet SL Q6H PRN Nausea And Vomiting Oxytocin 10 unit 01/09/24 17:56 Oxytocin 10 Unit/Ml Vial IM 01/11/24 05:00 ONCE PRN Bleeding Senna 17.2 mg 01/10/24 20:00 Sennosides 8.6 Mg Tablet PO QHS PRN Constipation Simethicone 80 mg 01/10/24 05:33 Simethicone 80 Mg Tab.Chew PO QID PRN Abdominal Distention Temazepam 15 mg 01/10/24 05:33 Temazepam 15 Mg Capsule PO QHS PRN Sleep Witch Lori/Glycerin 1 pad 01/10/24 05:33 01/10/24 16:23 Glycerin/Witch Lori Pads TOPICAL 1 pad Q2H PRN Administration Pain Diet Category Date Time Status Regular Consistency Diet Diet 01/10/24 05:33 Active Respiratory Oxygen Delivery Method Room Air Oxygen Delivery Method Room Air Oxygen Delivery Method Room Air Oxygen Delivery Method Room Air Bowels Bowel Pattern No Bowel Movement Renal Bladder Pattern Continent Bladder Pattern Continent
[2024-01-11 00:43] VITALS: TEMP 36
[2024-01-11 00:44] VITALS: BP 107/55; PULSE 78
[2024-01-11] MEDS: IBUPROFEN 600 MG TABLET PO ×2 (05:36→12:12)
[2024-01-11 07:25] LABS: Basophils Percent Auto 0.4 % (0.2-2.0); Eosinophils Absolute Auto 0.1 10^3/uL (0.0-0.7); Eosinophils Percent Auto 0.8 % (0.9-7.0); Hematocrit 29.4 % (36.0-48.0); Hemoglobin 9.5 g/dL (12.0-16.0); Immature Granulocytes Abs Auto 0.06 10^3/uL (0.00-0.03); Immature Granulocytes Pct Auto 0.7 % (0.0-0.5); Lymphocytes Absolute Auto 2.2 10^3/uL (1.2-3.8); Lymphocytes Percent Auto 23.5 % (20.5-60.0); Mean Corpuscular HGB Conc 32.3 g/dL (29.9-35.2); Mean Corpuscular Hemoglobin 26.9 pg (26.7-34.0); Mean Corpuscular Volume 83.3 fL (81.0-99.0); Mean Platelet Volume 10.5 fL (9.5-13.5); Monocytes Absolute Auto 0.9 10^3/uL (0.3-0.8); Monocytes Percent Auto 9.6 % (1.7-12.0); Platelet Count 252 10^3/uL (150-450); Red Blood Count 3.53 10^6/uL (4.20-5.40); Red Cell Distribution Width 14.7 % (11.0-15.0); White Blood Count 9.2 10^3/uL (4.0-11.0)
[2024-01-11 07:28] LABS: Glucometer 99 mg/dL (74-106)
[2024-01-11 07:54] VITALS: BP 113/74; PULSE 75
[2024-01-11 07:55] VITALS: TEMP 36.4
[2024-01-11] MEDS: DOCUSATE SODIUM 100 MG CAPSULE PO (08:55)
[2024-01-11] MEDS: ACETAMINOPHEN 325 MG TABLET 650 MG PO (08:55)
--- NOTE | 2024-01-11 13:41 | P.DS_ITS ---
DS: Providers Provider Date of admission: 01/09/24 17:30 Primary care physician: KISHA JOHNSON Admitting clinician: David Alaniz Attending physician on discharge: Georgie Simon Anticipated date of discharge: 01/11/24 DS: Diagnosis Discharge Diagnosis (1) Normal vaginal delivery: Assessment and plan: blood sugar normal, Dr. Alaniz does not want insulin continued for GDMa1, exam normal, baby ok for discharge, breast feeding, instructions given with stated understanding Plan discharge home OB - DS: Summary Hospital Course Hospital Course: uncomplicated Time spent discussing smoking cessation with patient: 3 to 10 minutes Peripartum Data - Vaginal Delivery Laceration description: perineal - 2nd degree Complications complications: none Delivery method: spontaneous vaginal delivery Gender: female Status at Discharge Cognitive/behavioral status at discharge: wnl Functional status at discharge: independent ambulation Overall status at discharge: patient is progressing back to baseline Time Spent with Patient Time attestation: Total time spent providing and/or coordinating discharge services: Time spent: less than 30 minutes Specific discharge activities: as above Exam Constitutional Vital Signs, click to edit/add: Last Vital Signs Temp 97.6 F 01/11/24 07:55 Pulse 75 01/11/24 07:54 Resp 14 01/11/24 07:55 BP 113/74 01/11/24 07:54 O2 Del Method Room Air 01/11/24 07:55 Documenting provider has reviewed patient's vital signs: yes Common normals: no apparent distress, oriented x3, no limitations, alert and well nourished [facility] Common normals: normocephalic and head/scalp atraumatic Eye Common normals: PERRL Pupil: accommodation reflex normal Neck & C-Spine Common normals: full ROM and supple Respiratory Common normals: normal respiratory effort Auscultation: clear to auscultation bilaterally Cardio Common normals: regular rate and regular rhythm GI Common normals: Normal to inspection, nondistended, normoactive bowel sounds present, soft to palpation and non-tender Common normals: no CVA tenderness Back & Pelvis Common normals: no thoracic nor lumbar tenderness Extremity Common normals: normal to inspection, full ROM and no calf tenderness Neuro Common normals: oriented x3, CN's II-XII intact bilaterally, moves all extremities, no focal motor deficits and no sensory deficits noted Psych Common normals: mental status grossly normal, thought process normal, cooperative, affect normal and speech normal DS: Data Data Completed and Pending Labs on day of discharge: Labs from last 24 hours 01/11/24 01/11/24 01/10/24 07:27 07:06 20:13 WBC 9.2 RBC 3.53 L Hgb 9.5 L Hct 29.4 L MCV 83.3 MCH 26.9 MCHC 32.3 RDW 14.7 Plt Count 252 MPV 10.5 Neut % (Auto) 65.0 Lymph % (Auto) 23.5 [place] % (Auto) 9.6 Eos % (Auto) 0.8 L Baso % (Auto) 0.4 Neut # (Auto) 6.0 Lymph # (Auto) 2.2 [place] # (Auto) 0.9 H Eos # (Auto) 0.1 Baso # (Auto) 0.0 Abs Immat Gran (auto) 0.06 H Imm/Tot Granulo (auto) 0.7 H POC Glucose 99 118 H Discharge Plan Discharge Disposition: Home, Self-Care Condition: Good Assessment: exam non focal, vss normal no temp, baby doing well, discharge home Plan of Treatment: discharge Discharge Medications: Discontinued ondansetron 4 mg tablet,disintegrating 4 mg PO Q4H PRN (Reason: nausea and vomiting) 3 Days Qty: 6 0RF insulin glargine [Lantus Solostar U-100 Insulin] 100 unit/mL (3 mL) insulin pen 14 unit SUBCUT BEDTIME insulin lispro 100 unit/mL insulin pen 4 unit subcut DAILY Activity: increase activity as tolerated Activity Detail: no sex six weeks, walking only exercise six weeks, only lift baby six weeks, may climb stairs, may shower, no bathtub 4 weeks Diet: regular diet Print Language: [place] Zealander Patient Instructions: Vaginal Delivery (DC) Activity Restrictions/Additional Instructions: as above Forms: Vaginal Delivery - Discharge, Portal Instructions Follow Up Appointments: make post exam appointment with provider Discharge location: home
== END 2024-01-11 15:15 | disposition home or self-care (01) | DRG 560 ==
PROVIDERS: Admitting Provider Obstetrics & Gynecology; PCP Family Medicine; Visit Provider Obstetrics & Gynecology
DX: O24.429 Gestational diabetes mellitus in childbirth, unspecified control (principal); Z37.0 Single live birth; O70.1 Second degree perineal laceration during delivery; O69.81X0 Labor and delivery complicated by cord around neck, without compression, not applicable or unspecified; Z3A.39 39 weeks gestation of pregnancy
CPT/HCPCS: 36415; 59025; 59050; 59410; 80307; 82948; 85025; 85027; 86850; 86900; 86901; J2300

== ENCOUNTER 2024-01-15 08:17 | Outpatient (OUT) | payer MEDICAID, SELFPAY ==
--- OUTSIDE RECORDS SUMMARY | 2024-01-15 08:22 | XMS_ITS | CCD ---
Author Organization [facility] Care Team Providers Care Coordinator Volunteer Services Name Role Phone ANTONIO MARCELO (MANAGER OF MEDICAL) Unavailable Unava ilable ANTONIO MARCELO (MANAGER OF MEDICAL) Unavailable Unava ilable DO Daryl Shannon Primary Care Provider VALERY Mandujano Emergency Provider Daryl Shannon Primary Care Unavailable Steve Mandujano Attending Unavailable Steve Mandujano Admitting Unavailable CORBIN, DOMO Attending Unavailable SAL, MARIAM Attending Unavailable CORBIN, DOMO Attending Unavailable CORBIN, DOMO Attending Unavailable SAL, MARIAM Attending Unavailable SAL, MARIAM Attending Unavailable CORBIN, DOMO Attending Unavailable SAL, MARIAM Attending Unavailable CORBIN, DOMO Attending Unavailable CORBIN, DOMO Attending Unavailable CORBIN, DOMO Attending Unavailable Daryl Shannon DO Primary Care Provider Medications Current Medications Medication Drug Class(es) Dates Sig (Normalized) Sig (Original) Blood Glucose Monitoring Suppl (D-Care Glucometer) w/Device kit (1 source) Start: 10-19-2023 End: 10-18-2024 Blood Glucose Monitoring Suppl (D-Care Glucometer) w/Device kit Indications: Gestational diabetes mellitus (GDM), antepartum, gestational diabetes method of control unspecified , Elevated glucose tolerance test 1 kit Daily Use four times daily to check FSBS. In the morning prior to breakfast & 1 hour after each meal for a total of 4times daily. 1 kit 10/19/2023 10/18/2024 Active cetirizine hydrochloride 10 mg oral tablet (2 sources) Histamine-1 Receptor Antagonist Start: 07-10-2023 take 1 tablet by mouth once daily cetirizine (ZyrTEC ALLERGY) 10 MG tablet Indications: Environmental and seasonal allergies Take 1 tablet (10 mg) by mouth Daily 30 tablet 3 07/10/2023 Active Start: 08-15-2022 Cetirizine (Zy rtec) 5 mg Tablet Active 10 MG PO As Directed August 15, 2022 12:00am dicyclomine hydrochloride 20 mg oral tablet (1 source) Anticholinergic Start: 08-15-2022 take 20 mg by mouth four times daily Dicyclomine Active 20 MG PO Four times daily August 15, 2022 12:00am 3 ml insulin glargine 100 unt/ml pen injector (2 sources) Insulin Analog Start: 12-25-2023 End: 01-24-2024 insulin glargine (Lantus SoloStar) 100 UNIT/ML pen Indications: Insulin controlled gestational diabetes mellitus (GDM) during , antepartum Inject 14 Units under the skin at bedtime 3 mL 2 12/25/2023 01/24/2024 Active Start: 11-22-2023 inject 10 [IU] by molina bcutaneous injection in the evening insulin glargine (Lantus) 100 UNIT/ML injection Indications: Hyperglycemia , GESTATIONAL DIABETES Inject 10 Units under the skin in the evening 3 mL 11/22/2023 Active 3 ml insulin lispro 100 unt/ml pen injector (1 source) Insulin Analog Start: 12-25-2023 End: 01-24-2024 insulin lispro (HumaLOG) 100 UNIT/ML injection Indications: Insulin controlled gestational diabetes mellitus (GDM) during , antepartum Inject 4 Units under the skin in the morning and 4 Units at noon and 4 Units in the evening. Inject before meals. 3.6 mL 2 12/25/2023 01/24/2024 Active isopropyl alcohol 0.7 ml/ml medicated pad (1 source) Start: 10-19-2023 Alcohol Swabs (Alcohol Prep Pad) 70 % pads Indications: Gestational diabetes mellitus (GDM), antepartum, gestational diabetes method of control unspecified , Elevated glucose tolerance test Apply 1 Pad topically Daily Use four times daily to check FSBS. 150 each 3 10/19/2023 Active ondansetron 4 mg disintegrating oral tablet (1 source) Serotonin-3 Receptor Antagonist Start: 08-15-2022 take 4 mg by mouth four times daily Ondansetron Active 4 MG PO Four times daily August 15, 2022 12:00am polysaccharide iron complex 391 mg oral capsule (1 source) Start: 11-22-2023 End: 11-21-2024 take 1 capsule by mouth once daily iron polysaccharides (ProFe) 391.3 (180 Fe) MG capsule Indications: Anemia during in second trimester Take 1 capsule (391.3 mg) by mouth Daily 30 capsule 6 11/22/2023 11/21/2024 Active Completed/Discontinued Medications Medication Drug Class(es) Dates Sig (Normalized) Sig (Original) amLODIPine 2.5 mg oral tablet (1 source) Dihydropyridine Calcium Channel Aishwarya Start: 11-20-2020 End: 08-15-2022 take 2.5 mg by mouth once daily Amlodipine Discontinued 2.5 MG PO Daily 30 November 20, 2020 12:00am August 15, 2022 6:11pm [id number] 0.3 ml EPINEPHrine 1 mg/ml auto-injector (1 [...] Test Name Value Interpretation Reference Range Facility [facility] CBC WITH PLATELET NO DI FFERENTIALon 01-09-2024 Erythrocyte distribution width (RBC) [Ratio] 14.5 % 11.0 - 15.0 % [facility] Hematocrit (Bld) [Volume fraction] 30.7 % Low 36.0 - 48.0 % [facility] Hemoglobin (Bld) [Mass/Vol] 10.0 g/dL Low 12.0 - 16.0 g/dL [facility] Interpretation and review of laboratory results Abnormal [facility] MCH (RBC) [Entitic mass] 26.9 pg 26.7 - 34.0 pg [facility] MCHC (RBC) [Mass/Vol] 32.6 g/dL 29.9 - 35.2 g/dL [facility] MCV (RBC) [Entitic vol] 82.5 fL 81.0 - 99.0 fL [facility] Platelet mean volume (Bld) [Entitic vol] 10.7 fL 9.5 - 13.5 fL [facility] TB PLT 283 [facility] RBC 3.72 Low [facility] WBC 6.4 [facility] US Breast Complete, Righton 08-18-2022 US Breast [...] by Deanne Hazel on 08/18/2022 1539 Normal [facility] Alanine aminotransferase [En zymatic activity/volume] in Serum or PlasmaOrdered By: Steve Mandujano on 08-15-2022 ALT [Catalytic activity/Vol] 16 U/L 7-52 [facility] Albumin [Mass/volume] in Ser um or Plasma by Bromocresol green (BCG) dye binding methoOrdered By: Steve Mandujano on 08-15-2022 Albumin BCG dye [Mass/Vol] 4.5 g/dL 3.5-5.7 [facility] Alkaline phosphatase [Enzyma tic activity/volume] in Serum or PlasmaOrdered By: Steve Mandujano on 08-15-2022 ALP [Catalytic activity/Vol] 82 U/L 34-104 [facility] Aspartate aminotransferase [ Enzymatic activity/volume] in Serum or PlasmaOrdered By: Steve Mandujano on 08-15-2022 AST [Catalytic activity/Vol] 19 U/L 13-39 [facility] Basophils Auto (Bld) [#/Vol] Ordered By: Steve Mandujano on 08-15-2022 Basophils (Bld) [#/Vol] 0.0 10*3/uL 0.0-0.1 [facility] Basophils/100 WBC Auto (Bld) Ordered By: Steve Mandujano on 08-15-2022 Basophils/100 WBC (Bld) 0.4 % . F [facility] Bilirubin.total [Mass/volume ] in Serum or PlasmaOrdered By: Steve Mandujano on 08-15-2022 Bilirubin [Mass/Vol] 0.7 mg/dL 0.3-1.0 [facility] Calcium [Mass/volume] in Ser um or PlasmaOrdered By: Steve Mandujano on 08-15-2022 Calcium [Mass/Vol] 8.8 mg/dL 8.6-10.3 [facility] Carbon dioxide, total [Moles /volume] in Serum or PlasmaOrdered By: Steve Mandujano on 08-15-2022 CO2 [Moles/Vol] 22.0 mmol/L 21.0-31.0 [facility] Chloride [Moles/volume] in S jennie or PlasmaOrdered By: Steve Mandujano on 08-15-2022 Chloride [Moles/Vol] 101 mmol/L 98-107 [facility] Complete Blood Count Auto Di ffon 08-15-2022 Basophils (Bld) [#/Vol] 0.0 10*3/uL Normal 0.0-0.1 [facility] Comment on above: Result Comment: PERF ORMED BY: [place] [address] PATHOLOGIST [employer]ING E[employer]CEMENT MANAGER PHILIP GONZALEZ M.D. Performed By: #### L IPASE, CMP, CBC #### [facility] [address] [place] [address] Basophils/100 WBC (Bld) 0.4 % Normal . F [facility] Comment on above: Performed By: #### L IPASE, CMP, CBC #### [facility] [address] [place] [address] Eosinophils (Bld) [#/Vol] 0.0 10*3/uL Normal 0.0-0.7 [facility] Comment on above: Performed By: #### L IPASE, CMP, CBC #### [facility] [address] [place] [address] [place] Eosinophils/100 WBC (Bld) 0.6 % Normal . [facility] Comment on above: Performed By: #### L IPASE, CMP, CBC #### [facility] [address] [place] [address] Erythrocyte distribution width (RBC) [Ratio] 13.2 % Normal 11.9-15.3 [facility] Comment on above: Performed By: #### L IPASE, CMP, CBC #### [facility] [address] [place] [address] Hematocrit (Bld) [Volume fraction] 37.2 % Normal 36.0-46.0 [facility] Comment on above: Performed By: #### L IPASE, CMP, CBC #### [address] Hemoglobin (Bld) [Mass/Vol] 12.5 g/dL Normal 12.0-16.0 [facility] Comment on above: Performed By: #### L IPASE, CMP, CBC #### [address] Lymphocytes (Bld) [#/Vol] 0.8 10*3/uL Low 1.20-4.8 [facility] Comment on above: Performed By: #### L IPASE, CMP, CBC #### [address] Lymphocytes/100 WBC (Bld) 9.9 % Normal . [facility] Comment on above: Performed By: #### L IPASE, CMP, CBC #### [address] MCH (RBC) [Entitic mass] 28.6 pg Normal 25.0-35.0 [facility] Comment on above: Performed By: #### L IPASE, CMP, CBC #### [address] MCV (RBC) [Entitic vol] 85.4 fL Normal 78-102 F [facility] Comment on above: Performed By: #### L IPASE, CMP, CBC #### [address] Mean Corpuscular HGB Conc 33.5 g/dL Normal 31.0-37.0 [facility] Comment on above: Performed By: #### L IPASE, CMP, CBC #### [address] Monocytes (Bld) [#/Vol] 0.8 10*3/uL Normal 0.1-1.00 [facility] Comment on above: Performed By: #### L IPASE, CMP, CBC #### [address] [place] [address] [place] Monocytes/100 WBC (Bld) 17.61 % Normal 0.00-20.00 [facility] Comment on above: Performed By: #### L IPASE, CMP, CBC #### [facility] [address] [place] [address] [place] Monocytes/100 WBC (Bld) 9.9 % Normal . F [facility] Comment on above: Performed By: #### L IPASE, CMP, CBC #### [facility] [address] [place] [address] [place] Neutrophils (Bld) [#/Vol] 6.6 10*3/uL Normal 1.2-7.7 [facility] Comment on above: Performed By: #### L IPASE, CMP, CBC #### [facility] [address] [place] [address] [place] Neutrophils/100 WBC (Bld) 79.2 % Normal . [facility] Comment on above: Performed By: #### L IPASE, CMP, CBC #### [facility] [address] [place] [address] [place] NRBC% 0.1 /100{WBC} Normal 0-0.5 [facility] Comment on above: Performed By: #### L IPASE, CMP, CBC #### [facility] [address] [place] [address] [place] Platelet mean volume (Bld) [Entitic vol] 7.9 fL Normal 6.3-10.7 [facility] Comment on above: Performed By: #### L IPASE, CMP, CBC #### [facility] [address] [place] [address] [place] Platelets (Bld) [#/Vol] 210 10*3/uL Normal 150-450 [facility] Comment on above: Performed By: #### L IPASE, CMP, CBC #### [facility] [address] [place] [address] [place] RBC (Bld) [#/Vol] 4.36 10*6/uL Normal 4.10-5.10 [facility] Comment on above: Performed By: #### L IPASE, CMP, CBC #### [address] WBC (Bld) [#/Vol] 8.4 10*3/uL Normal 4.5-13.5 [facility] Comment on above: Performed By: #### L IPASE, CMP, CBC #### [address] Comprehensive Metabolic Pane gisell 08-15-2022 Albumin [Mass/Vol] 4.5 g/dL Normal 3.5-5.7 [facility] Comment on above: Performed By: #### L IPASE, CMP, CBC #### [address] Albumin/Globulin [Mass ratio] 1.6 {ratio} Normal [facility] Comment on above: Performed By: #### L IPASE, CMP, CBC #### [address] ALP [Catalytic activity/Vol] 82 U/L Normal 34-104 [facility] Comment on above: Performed By: #### L IPASE, CMP, CBC #### [address] ALT [Catalytic activity/Vol] 16 U/L Normal 7-52 [facility] Comment on above: Performed By: #### L IPASE, CMP, CBC #### [address] Anion gap [Moles/Vol] 13.8 mmol/L Normal 6.0-15.0 [facility] Comment on above: Performed By: #### L IPASE, CMP, CBC #### [address] AST [Catalytic activity/Vol] 19 U/L Normal 13-39 [facility] Comment on above: Performed By: #### L IPASE, CMP, CBC #### [address] Bilirubin [Mass/Vol] 0.7 mg/dL Normal 0.3-1.0 [facility] Comment on above: Performed By: #### L IPASE, CMP, CBC #### [facility] [address] Calcium [Mass/Vol] 8.8 mg/dL Normal 8.6-10.3 [facility] Comment on above: Performed By: #### L IPASE, CMP, CBC #### [facility] [address] [place] [address] [place] Chloride [Moles/Vol] 101 mmol/L Normal 98-107 [facility] Comment on above: Performed By: #### L IPASE, CMP, CBC #### [facility] [address] CO2 [Moles/Vol] 22.0 mmol/L Normal 21.0-31.0 [facility] Comment on above: Performed By: #### L IPASE, CMP, CBC #### [facility] [address] Creatinine [Mass/Vol] 0.81 mg/dL Normal 0.60-1.20 [facility] Comment on above: Performed By: #### L IPASE, CMP, CBC #### [facility] [address] [place] [address] [place] Creatinine Clr Calc Pharmacy 120.43 [facility] Comment on above: Performed By: #### L IPASE, CMP, CBC #### [facility] [address] [place] [address] [place] GFR/1.73 sq M.predicted MDRD (S/P/Bld) [Vol rate/Area] mL/min/{1.73_m2} [facility] Comment on above: Performed By: #### L IPASE, CMP, CBC #### [facility] [address] [place] [address] [place] Globulin (S) [Mass/Vol] 2.8 g/dL Normal [facility] Comment on above: Performed By: #### L IPASE, CMP, CBC #### [facility] [address] [place] [address] [place] Glucose [Mass/Vol] 93 mg/dL Normal 70-100 [facility] Comment on above: Result Comment: [place] Glucose Reference Range is dependent on time and content of last meal. Glucose of more than 200 mg/dL in a nonstressed, ambulatory subject supports the diagnosis of Diabetes Mellitus. ADA recommended reference range Performed By: #### L IPASE, CMP, CBC #### [facility] [address] Potassium [Moles/Vol] 3.8 mmol/L Normal 3.5-5.1 [facility] Comment on above: Performed By: #### L IPASE, CMP, CBC #### [facility] [address] Protein [Mass/Vol] 7.3 g/dL Normal 6.4-8.9 [facility] Comment on above: Performed By: #### L IPASE, CMP, CBC #### [facility] [address] [place] [address] [place] Sodium [Moles/Vol] 133 mmol/L Low 136-145 [facility] Comment on above: Performed By: #### L IPASE, CMP, CBC #### [facility] [address] [place] [address] [place] Urea nitrogen [Mass/Vol] 16 mg/dL Normal 7-25 [facility] Comment on above: Performed By: #### L IPASE, CMP, CBC #### [facility] [address] Creatinine [Mass/volume] in Serum or PlasmaOrdered By: Steve Mandujano on 08-15-2022 Creatinine [Mass/Vol] 0.81 mg/dL 0.60-1.20 [facility] Eosinophils Auto (Bld) [#/Vo l]Ordered By: Steve Mandujano on 08-15-2022 Eosinophils (Bld) [#/Vol] 0.0 10*3/uL 0.0-0.7 [facility] Eosinophils/100 WBC Auto (Bl d)Ordered By: Steve Mandujano on 08-15-2022 Eosinophils/100 WBC (Bld) 0.6 % . [facility] Erythrocyte distribution wid th Auto (RBC) [Ratio]Ordered By: Steve Mandujano on 08-15-2022 Erythrocyte distribution width (RBC) [Ratio] 13.2 % 11.9-15.3 [facility] Globulin Calc (S) [Mass/Vol] Ordered By: Steve Mandujano on 08-15-2022 Globulin (S) [Mass/Vol] 2.8 g/dL F [facility] Glucose [Mass/volume] in Ser um or PlasmaOrdered By: Steve Mandujano on 08-15-2022 Glucose [Mass/Vol] 93 mg/dL 70-100 [facility] Comment on above: ADA recommended refe rence rangeRandom Glucose Reference Range is dependent on time and content of last meal. Glucose of more than 200 mg/dL in a nonstressed, ambulatory subject supports the diagnosis of Diabetes Mellitus. Hematocrit Auto (Bld) [Volum e fraction]Ordered By: Steve Mandujano on 08-15-2022 Hematocrit (Bld) [Volume fraction] 37.2 % 36.0-46.0 [facility] Hemoglobin [Mass/volume] in BloodOrdered By: Steve Mandujano on 08-15-2022 Hemoglobin (Bld) [Mass/Vol] 12.5 g/dL 12.0-16.0 [facility] Leukocytes [#/volume] correc lilly for nucleated erythrocytes in Blood by Automated counOrdered By: Steve Mandujano on 08-15-2022 WBC corrected for nucl RBC Auto (Bld) [#/Vol] 8.4 10*3/uL 4.5-13.5 [facility] Lipaseon 08-15-2022 Lipase [Catalytic activity/Vol] 11.0 U/L Normal 11.0-82.0 [facility] Comment on above: Result Comment: PERF ORMED BY: [place] [address] PATHOLOGIST [employer]ING E[employer]CEMENT MANAGER PHILIP GONZALEZ M.D. Performed By: #### L IPASE, CMP, CBC #### [address] Lipase [Enzymatic activity/v olume] in Serum or PlasmaOrdered By: Steve Mandujano on 08-15-2022 Lipase [Catalytic activity/Vol] 11.0 U/L 11.0-82.0 [facility] Lymphocytes Auto (Bld) [#/Vo l]Ordered By: Steve Mandujano on 08-15-2022 Lymphocytes (Bld) [#/Vol] 0.8 10*3/uL 1.20-4.8 [facility] Lymphocytes/100 WBC Auto (Bl d)Ordered By: Steve Mandujano on 08-15-2022 Lymphocytes/100 WBC (Bld) 9.9 % . [facility] MCH Auto (RBC) [Entitic mass ]Ordered By: Steve Mandujano on 08-15-2022 MCH (RBC) [Entitic mass] 28.6 pg 25.0-35.0 [facility] MCHC Auto (RBC) [Mass/Vol]Or dered By: Steve Mandujano on 08-15-2022 MCHC (RBC) [Mass/Vol] 33.5 g/dL 31.0-37.0 [facility] MCV Auto (RBC) [Entitic vol] Ordered By: Steve Mandujano on 08-15-2022 MCV (RBC) [Entitic vol] 85.4 fL 78-102 F [facility] Monocyte distribution width [Entitic volume] in Blood by AutomatedOrdered By: Steve Mandujano on 08-15-2022 Monocyte distribution width Auto (Bld) [Entitic vol] 17.61 % 0.00-20.00 [facility] Monocytes Auto (Bld) [#/Vol] Ordered By: Steve Mandujano on 08-15-2022 Monocytes (Bld) [#/Vol] 0.8 10*3/uL 0.1-1.00 [facility] Monocytes/100 WBC Auto (Bld) Ordered By: Steve Mandujano on 08-15-2022 Monocytes/100 WBC (Bld) 9.9 % . F [facility] Neutrophils Auto (Bld) [#/Vo l]Ordered By: Steve Mandujano on 08-15-2022 Neutrophils (Bld) [#/Vol] 6.6 10*3/uL 1.2-7.7 [facility] Neutrophils/100 WBC Auto (Bl d)Ordered By: Steve Mandujano on 08-15-2022 Neutrophils/100 WBC (Bld) 79.2 % . [facility] No Panel InformationOrdered By: Steve Mandujano on 08-15-2022 Estimated GFR (CKD-EPI) > 60.0 mL/Min [facility] Creatinine Clearance (Chem 120.43 [facility] Nucleated erythrocytes [Pres ence] in Blood by Automated countOrdered By: Steve Mandujano on 08-15-2022 Nucleated RBC Auto Ql (Bld) 0.1 /100{WBC} 0-0.5 [facility] Platelet mean volume Auto (B ld) [Entitic vol]Ordered By: Steve Mandujano on 08-15-2022 Platelet mean volume (Bld) [Entitic vol] 7.9 fL 6.3-10.7 [facility] Platelets Auto (Bld) [#/Vol] Ordered By: Steve Mandujano on 08-15-2022 Platelets (Bld) [#/Vol] 210 10*3/uL 150-450 [facility] Potassium [Moles/volume] in Serum or PlasmaOrdered By: Steve Mandujano on 08-15-2022 Potassium [Moles/Vol] 3.8 mmol/L 3.5-5.1 [facility] Protein [Mass/volume] in Ser um or PlasmaOrdered By: Steve Mandujano on 08-15-2022 Protein [Mass/Vol] 7.3 g/dL 6.4-8.9 [facility] RBC Auto (Bld) [#/Vol]Ordere d By: Steve Mandujano on 08-15-2022 RBC (Bld) [#/Vol] 4.36 10*6/uL 4.10-5.10 [facility] Serum or plasma albumin/glob ulin mass ratioOrdered By: Steve Mandujano on 08-15-2022 Albumin/Globulin [Mass ratio] 1.6 {ratio} [facility] Serum or plasma anion gap de terminationOrdered By: Steve Mandujano on 08-15-2022 Anion gap [Moles/Vol] 13.8 mmol/L 6.0-15.0 [facility] Sodium [Moles/volume] in Ser um or PlasmaOrdered By: Steve Mandujano on 08-15-2022 Sodium [Moles/Vol] 133 mmol/L 136-145 [facility] Urea nitrogen [Mass/volume] in Serum or PlasmaOrdered By: Steve Mandujano on 08-15-2022 Urea nitrogen [Mass/Vol] 16 mg/dL 7-25 [facility] WBC Auto (Bld) [#/Vol]Ordere d By: Steve Mandujano on 08-15-2022 WBC (Bld) [#/Vol] 8.4 10*3/uL 4.5-13.5 [facility] CNCOon 01-06-2021 CNCO Letter Text Normal [facility] CNOVon 01-04-2021 CNOV Office Visit (PERHAV ) CAROL KRAUSE ([id number]) 3 F Date Time Provider Department 01/04/21 9:00 AM SHARRON ARREOLA During your visit today, we recorded the following information about you: Temperature Pulse Respiration Blood pressure 98.3 degrees 92/minute 18/minute 127/64 Weight Height 79.8 kg 1.6 m Sharron Arreola MD 01/07/2021 3:20 PM Signed INITIAL OUTPATIENT VISIT PEDIATRIC RHEUMATOLOGY SERVICE DATE: 01/04/2021 REFERRING PHYSICIAN: Daryl Shannon DO [address] [id number] PRIMARY CARE PHYSICIAN: Daryl Shannon DO ACCOMPANIED [...] - S (more content not included)... Normal [facility] PROGRESSon 10-17-2017 Protein HNO ID: [id number]: Reba Munoz) GolayService: RadiologyAuthor Type: Cardiac SonographerType: Progress NotesFiled: 10/17/2017 10:42 AMNote Text: Radiology Service Progress NotePATIENT NAME: Carol KrauseMRN: [id number] OF SERVICE: October 17, 2017TIME: 10:40 AMPATIENT IDENTITY VERIFICATION COMPLETED USING TWO (2) METHODS: Patientconfirmed name verbally and ID band matches..PATIENT GENDER DATA: Female. status: : NoBreastfeeding status: NO. and N/APATIENT RELEVANT IMPLANT DATA REVIEWED: Not ApplicableRADIOLOGY DEPARTMENT: Ultrasound renalPERIPHERAL IV DATA: Not applicableSIGNED BY: Jacki Bailey 2017 10:40 AM [facility] Protein HNO ID: [id number]: Sandra OlivaresRt) WallService: RadiologyAuthor Type: TechnicianType: Progress NotesFiled: 10/17/2017 10:03 AMNote Text: Radiology Service Progress NotePATIENT NAME: Carol KrauseMRN: [id number] OF SERVICE: October 17, 2017TIME: 10:03 AMPATIENT IDENTITY VERIFICATION COMPLETED USING TWO (2) METHODS: Patientconfirmed name verbally and Date of .PATIENT GENDER DATA: Female. status: : NoBreastfeeding status: NO.PATIENT RELEVANT IMPLANT DATA REVIEWED: YesRADIOLOGY DEPARTMENT: General X-ray: Exam(s) Completed: Abdomen X-RayAbdomenPERIPHERAL IV DATA: Not applicableSIGNED BY: Nikki Haley 2017 10:03 AM [facility] US KIDNEY/BLADDERon 10-18-19 US KIDNEY/BLADDER [...] GUERIN MD on Oct 17 2017 11:06AM [id number] [facility] XR ABDOMEN 1V SUPINEon 10-17 XR [...] Large amount of fecal material in the colon.[employer] : JOSE Transcribe Date/Time: Oct 17 2017 10:32ADictated by : SASHA MANDUJANO MDThis examination was interpreted and the report reviewed and electronically signed by: SASHA MANDUJANO MD on Oct 17 2017 10:33AM [id number] [facility] Vital Signs Date Time Vital Sign Value Performing Clinician Turner bolanos 08-15-2022 19:52-0400 Diastolic blood pressure 60 mm[Hg] DO Daryl Petznick Work Phone: [facility] 08-15-2022 19:52-0400 Heart rate 78 /min DO Daryl Petznick Work Phone: [facility] 08-15-2022 19:52-0400 Respiratory rate 18 /min DO Daryl Petznick Work Phone: [facility] 08-15-2022 19:52-0400 SaO2% (BldA) [Mass fraction] 98 % DO Daryl Petznick Work Phone: [facility] 08-15-2022 19:52-0400 Systolic blood pressure 119 mm[Hg] DO Daryl Petznick Work Phone: [facility] 08-15-2022 18:47-0400 Body temperature 97.6 [degF] DO Daryl Shannon Work Phone: [facility] 08-15-2022 17:41-0400 Body height 160.02 cm DO Daryl Shannon Work Phone: [facility] 08-15-2022 17:41-0400 Body weight 90.71 kg DO Daryl Shannon Work Phone: [facility] Encounters Encounter Date Encounter Type Care Provider Facility Start: 01-09-2024 End: 01-09-2024 Clinisync Result Encounter Domo Corbin DO Work Phone: [facility] Unsolicited Start: 01-09-2024 End: 01-09-2024 Clinisync Result Encounter Domo Corbin DO Work Phone: [facility] Unsolicited Start: 01-03-2024 End: 01-03-2024 ambulatory DOMO CORBIN Not Available Start: 12-27-2023 End: 12-27-2023 ambulatory DOMO CORBIN Not Available Start: 12-20-2023 End: 12-20-2023 ambulatory DOMO CORBIN Not Available Start: 12-06-2023 End: 12-06-2023 ambulatory MARIAM SAL Not Available Start: 11-22-2023 End: 11-22-2023 ambulatory DOMO CORBIN Not Available Start: 11-08-2023 End: 11-08-2023 ambulatory MARIAM SAL Not Available Start: 10-25-2023 End: 10-25-2023 ambulatory MARIAM SAL Not Available Start: 10-04-2023 End: 10-04-2023 ambulatory DOMO CORBIN Not Available Start: 09-06-2023 End: 09-06-2023 ambulatory DOMO CORBIN Not Available Start: 08-09-2023 End: 08-09-2023 ambulatory MARIAM SAL Not Available Start: 07-10-2023 End: 07-10-2023 ambulatory DOMO CORBIN Not Available Start: 06-09-2023 End: 06-09-2023 ambulatory DOMO CORBIN Not Available Start: 08-15-2022 End: 08-15-2022 Emergency department patient visit Daryl Shannon Facility:[facility] Start: 08-15-2022 End: 08-15-2022 Emergency department patient visit DO Daryl Shannon Work Phone: [facility] Work Phone: Start: 10-17-2017 Ambulatory ANTONIO Caballero (CN P) [facility] Procedures Date Procedure Procedure Detail Performing Clinician Start: 01-09-2024 [facility] CBC WITH PLATEL ET NO DIFFERENTIAL Domo Ambrosioo DO Work Phone: Plan of Treatment Date Care Activity Detail Author Start: 12-10-2023 Influenza vaccination Influenza Vacc ine (#1) [facility] Patient Education Abdominal Pain , Adult ED [facility] Work Phone: Patient referral [facility] Work Phone: Immunizations Immunization Date Immunization Notes Care Provider Fa [facility] 03-02-2005 influenza virus vacc ine, unspecified formulation Domouzair Alaniz DO Work Phone: [facility] Payers Date Payer Category Payer Self-pay [id number] 2022 Unknown [id number] 2022 Medicaid [place] [id number] 2022-Present [address] [place] [address] [id number] 2022 Medicaid [id number] 2004 Unknown [id number] 2004 Unknown [id number] [id number] 2004 Unknown [id number] 2.16.840.1.711916.3.579.2.9 2004 Unknown [id number] 2.16.840.1.755511.3.579.2.9 2004 Unknown [id number] 2.16.840.1.598064.3.579.2.9 2004 Unknown [id number] 2.16.840.1.848137.3.579.2.9 2004 Unknown [id number] 2.16.840.1.708456.3.579.2.9 2004 Unknown [id number] 2.16.840.1.236528.3.579.2.1258 2004 Unknown [id number] 2.16.840.1.398096.3.579.2.1258 2004 Unknown [id number] 2.16.840.1.225652.3.579.2.9 2004 Unknown [id number] 2.16.840.1.846752.3.579.2.9 2004 Unknown [id number] 2.16.840.1.929614.3.579.2.1259 Medicaid [place] Advantage [id number] Unknown O [id number] Unknown [id number] [id number] Social History Date Type Detail Facility Start: 08-15-2022 End: 02-13-2023 Tobacco smoking status MTIS Never smoked tobacco (finding) [facility] Start: 2005 Sex Assigned At Female F [facility] Start: 01-03-2024 Alcoholic beverage intake Ex-drinker (finding) [facility] Start: 02-13-2023 History of Social function [facility] Start: 02-13-2023 Tobacco use panel [facility] Start: 02-13-2023 Alcohol Comment caffeine intak e : more than 4 cups per day [facility] Start: 04-25-2023 [facility] Start: 2004 Sex assigned at Not on file N [facility] Medical Equipment Procedure Code Equipment Code Equipment Origin al Text Equipment Identifier Dates [id number] Start: 10-20-2023 Progress note 01-04-2021 Note Date & Type Note Facility 01-04-2021 Note HNO ID: [id number] Author: Sharron Arreola MD Service: ? Author Type: Physician Type: Progress Notes Filed: 01/07/2021 3:20 PM Note Text: INITIAL OUTPATIENT VISIT PEDIATRIC RHEUMATOLOGY SERVICE DATE: 01/04/2021 REFERRING PHYSICIAN: Daryl Shannon DO [address] [facility] [address] PRIMARY CARE PHYSICIAN: Daryl Shannon DO ACCOMPANIED [...] CURRENT MEDICATIONS: EP (more content not included)... [facility] Evaluation note Note Date & Type Note Facility Evaluation note No assessment information availa [facility] Work Phone: Summary Purpose Family History No Family History Records FoundNo Family History Records FoundNo Family History Records FoundNo Family History Records FoundNo Family History Records Found Advance Directives Advance Directive Response Recorded Date/ Time Advance Directives No April 19, 2019 3:40pm Chief Complaint and Reason for Visit Chief Complaint abd pain Additional Source Comments INFORMATION SOURCE (unrecogn ized section and content) DATE CREATED AUTHOR 10/17/2017 [facility] DATE CREATED AUTHOR AUTHOR'S ORGANIZ ATION 05/08/2021 [facility] DATE CREATED AUTHOR AUTHOR'S ORGANIZ ATION 08/16/2022 [facility] DATE CREATED AUTHOR AUTHOR'S ORGANIZ ATION 08/19/2022 [facility] DATE CREATED AUTHOR AUTHOR'S ORGANIZ ATION 01/05/2024 [facility] EPIC Care Teams (unrecognized sec tion and content) Team Status: Active Member Role Status Dates Daryl Shannon DO Primary Care Provider Active Team Status: Inactive Member Role Status Dates Daryl Shannon DO Primary Care Provider Active Steve Mandujano PA-C Emergency Provider Active Coordinator Volunteer Services Relationship Specialty Start Date End Date Daryl Shannon DO [address] [place] [address] PCP - General Family Medicine 08/16/22 Goals (unrecognized section and content) Goals may [...] BE BASED ON THE PRIMARY CLINICAL RECORDS. [facility] [facility]. provides no warranty or guarantee of the accuracy or completeness of information in this document.
--- NOTE | 2024-01-15 14:27 | PC.NURSE ---
Herberth and Santosh and 5 day old daughter, Jaimie arrive for follow up visit. Parents report hanging in there and are adjusting to life with a . States baby wakes to feed every 2 hours and spends 30 minutes eating , gets a diaper change and returns to sleep. Mom states is recovering from delivery, bottom still cleaner, but getting better . VSS and assessment WNL for Herberth. Milk in late Monday night and engorgement has settled at this time. Nipples remain sore bilaterally, Slight excoriation noted. Continues to use lanolin ointment after feeds. Jaimie has frequent wet and stool diapers, stool diapers have increased in last 24 hours per mom. noted to have bilateral crusty eye drainage. Instructed for parents to wipe eyes gently 3-4 times daily with massage and warm wet cloth. Verbalized understanding. Baby has VSS and assessment WNL. Reviewed normal expectations for weight loss in . Is currently 6.5 % down from weight. Aware goal is to regain weight by day 10-14. Parents are clam and gentle with baby, demonstrates confidence in handling baby. Mom places baby to breast, positioning adjusted for deepest latch. Reviewed latch and positioning for best milk removal and comfort for mom. Baby latches deeply, with audible suck/swallows noted. Both parents pleased with infants effort, mom reports barely tender during feed. Family denies further questions and leaves ambulatory as Santosh heading to work at 2pm. Aware to call for concerns and of [facility].
[2024-01-15 14:32] VITALS: BP 126/72; PULSE 90; TEMP 36.7
== END 2024-01-15 13:45 | disposition home or self-care (01) ==
LOC: FBCO 08:19
PROVIDERS: PCP Family Medicine; Visit Provider Obstetrics & Gynecology
DX: Z39.2 Encounter for routine postpartum follow-up (principal)